=== PATIENT | female | born 1985 | race Caucasian/White ===

== ENCOUNTER 2018-07-11 08:47 | Outpatient (CLI) | payer MEDICAID, SELFPAY ==
[2018-07-11 10:00] LABS: TSH (W/Ref FT4) 1.27 uIU/mL (0.358-3.74)
== END 2018-07-11 09:07 ==
PROVIDERS: PCP Nurse Practitioner Family; Visit Provider Nurse Practitioner Family
DX: N92.6 Irregular menstruation, unspecified (principal)
CPT/HCPCS: 36415; 84443

== ENCOUNTER 2018-07-11 10:21 | Outpatient (REF) | payer MEDICAID, SELFPAY ==
[2018-07-12 14:18] LABS: Chlamydia Result Negative; GC Result Negative; Specimen Description CERVIX
== END 2018-07-11 10:41 ==
LOC: LBN 10:21
PROVIDERS: PCP Nurse Practitioner Family; Visit Provider Nurse Practitioner Family
DX: Z11.3 Encounter for screening for infections with a predominantly sexual mode of transmission (principal)
CPT/HCPCS: 87491; 87591

== ENCOUNTER 2018-08-22 01:23 | Outpatient (CLI) | payer MEDICAID, SELFPAY ==
--- NOTE | 2018-08-22 12:11 | DI.US_ITS ---
SYMPTOM/DIAGNOSIS: HEAVY BLEEDING, MENORRHAGIA N92.0 PELVIC ULTRASOUND: 08/22 Pelvic ultrasound was performed transabdominally and transvaginally. Please see the accompanying data sheet for measurements of the pelvic structures. There is a small quantity of free fluid seen in the right adnexal region. The ovaries have a normal follicular appearance. Uterus is unremarkable in appearance with a 3 mm thick homogeneous endometrial stripe. CONCLUSION: Unremarkable pelvic ultrasound.
== END 2018-08-22 01:43 ==
PROVIDERS: PCP Nurse Practitioner Family; Visit Provider Nurse Practitioner Family
DX: N92.0 Excessive and frequent menstruation with regular cycle (principal)
CPT/HCPCS: 76830; 76856

== ENCOUNTER 2018-11-02 14:01 | Emergency (ER) | payer MEDICAID, SELFPAY ==
[2018-11-02 14:14] VITALS: BP 150/92; PULSE 110; RESP 18; TEMP 36.7; O2SAT 95
--- NOTE | 2018-11-02 14:48 | DI.CT_ITS ---
SYMPTOM/DIAGNOSIS: LUQ PAIN CT ABDOMEN AND PELVIS: CT scan of the abdomen and pelvis was performed following the uneventful administration of intravenous contrast material. Comparison is 10/29/18 Portions of the dome of the liver were not included on this examination. The visualized lung bases are clear. The visualized portions of the liver are unremarkable. The gallbladder is negative. The portal and superior mesenteric veins are patent. There is no biliary ductal dilatation. The pancreas, spleen and adrenal glands are unremarkable. The kidneys show normal and symmetric enhancement. No solid renal mass or obstruction is identified. The urinary bladder is intact. The reproductive organs are unremarkable. There is diverticulosis seen in the sigmoid colon and descending colon but no evidence of acute diverticulitis. The remainder of the bowel is unremarkable. There is a normal appendix present. The abdominal aorta is of normal caliber. No significant abdominal or pelvic adenopathy, ascites or pneumoperitoneum seen. The bones are intact. IMPRESSION: No evidence of an acute abdomen.
[2018-11-02 15:44] LABS: Bilirubin Negative (Negative); Blood Negative (Negative); Clarity Sl Cloudy; Glucose Negative (Negative); Ketones Negative (Negative); Leukocyte Esterase Negative (Negative); Nitrite Negative (Negative); Specific Gravity 1.025 (1.005-1.025); Urobilinogen 0.2 EU/dL (Up TO 0.2)
[2018-11-02 15:55] LABS: Abs Immature Grans 0.04 k/cumm (0.0-0.09); Absolute Basophil Count 0.03 k/cumm (0.0-0.2); Absolute Eosinophil Count 0.18 k/cumm (0.0-0.7); Absolute Lymphocyte Count 4.17 k/cumm (1.2-3.4); Absolute Monocyte Count 1.31 k/cumm (0.11-0.7); Absolute Neutrophil Count 9.64 k/cumm (1.2-6.7); Basophils % 0.2; Eosinophils % 1.2; HCT 39.4 % (36.0-46.0); HGB 12.9 g/dL (12.0-15.5); Immature Grans % 0.3; Lymphocytes % 27.1; Mean Corp. HGB Concentration 32.7 g/dL (32.0-36.0); Mean Corpuscular Hemoglobin 27.9 pg (27.0-33.0); Mean Corpuscular Volume 85.3 fL (80-95); Mean Platelet Volume 10.8 fL (8.0-11.0); Monocytes % 8.5; Neutrophils % 62.7; Platelet Count 353 x1000/uL (130-400); RBC 4.62 m/cumm (4.00-5.20); RBC Distribution Width 12.8 % (11.7-14.6); White Blood Cell Count 15.38 k/cumm (4.4-10.8)
[2018-11-02] MEDS: Normal Saline 1,000 ML 1000 ML IV (15:58)
[2018-11-02] MEDS: Lidocaine 5% Patch 1 PATCH TP (15:58)
--- NOTE | 2018-11-02 16:02 | ED.GENADUL_ITS ---
Discharge Plan Disposition Patient Disposition: HOME Condition: Stable Discharge Details Chief Complaint: Abd Prob Clinical Impression: Abdominal pain Primary Care Provider: Karen Valenzuela ED Provider: Adrian Vazquez Home Meds and New Rx's Prescriptions: New acyclovir 800 mg tablet 800 mg PO Q4H 7 Days Qty: 42 RF: 0 lidocaine 5 % adhesive patch,medicated 1 patch TP DAILY PRN (Reason: pain) Qty: 15 RF: 0 No Action norgestimate-ethinyl estradiol [Sprintec (28)] 0.25-35 mg-mcg tablet 1 tab PO DAILY Qty: 84 RF: 0 Hold Instructions: None medroxyprogesterone 5 mg tablet 5 mg PO DAILY Qty: 30 RF: 0 norethindrone-e.estradiol-iron 1.5 mg-30 mcg (21)/75 mg (7) tablet 1 tab PO DAILY Qty: 84 RF: 4 epinephrine 0.3 MG/SYR auto-injector 0.3 mg IJ PRN PRN (Reason: Anaphylaxis) Qty: 1 RF: 0 ProAir HFA 200 PUFF HFA aerosol inhaler 2 puff Inhalation PRN PRNRF: 0 Discharge Instructions Instructions: Abdominal Pain (ED) Additional Instructions: Your lab work and cat scan did not reveal a cause for your pain. Given the localized area of your pain this could be early shingles. If a rash develops fill the acyclovir You can take 1000mg tylenol and 600mg ibuprofen every 6 hours for pain as needed if you feel you are having significantly more pain or new symptoms such as chest pain or difficulty breathing return to the emergency department Discharge Data Discharge Date/Time-TO BE ENTERED AT DEPARTURE: 11/02/18 17:37 Medical Decision Making <Santos Carrera NP - Last Filed: 11/06/18 10:07> LUQ abd pain started last night persistant. tenderness is somewhat superficial but no trauma is noted. labs and CT ordered along with lidocaine patch. pt denies pain medication at this time. pending results pt signed out to Dr. Vazquez. HPI <Santos Carrera NP - Last Filed: 11/06/18 10:07> General Mode of arrival: ambulatory . Date/Time Provider Initiated Documentation: 11/02/18 14:09 . Limitations to Documentation: no limitations . Information obtained by: patient and RN notes reviewed . History of Present Illness 33 year old F presents to the emergency department with the chief complaint of LUQ abd pain, described as moderate, with intensity rated at 7. Quality is described as aching and sharp, and is localized to the abdomen. Patient started experiencing this day(s) (2) and it has been constant. No relieving factors improve symptom(s), No exacerbating factors reported . Patient did receive the following treatments prior to arrival, none Related Data Home Medications Medication Instructions Recorded Confirmed ProAir HFA 2 puff INHALATION PRN PRN 06/15/17 11/02/18 epinephrine 0.3 mg IJ PRN PRN #1 kit 02/10/18 11/02/18 norgestimate 0.25 mg-ethinyl 1 tab PO DAILY #84 tab 07/11/18 07/11/18 estradiol 35 mcg tablet medroxyprogesterone 5 mg tablet 5 mg PO DAILY #30 tab 08/12/18 norethindrone 1.5 mg-ethinyl 1 tab PO DAILY #84 tab 08/21/18 estradiol 30 mcg(21)/iron 75 mg(7) tablet acyclovir 800 mg PO Q4H 7 Days #42 tab 11/02/18 lidocaine 1 patch TP DAILY PRN #15 each 11/02/18 Previous Rx's Medication Instructions Recorded epinephrine 0.3 mg IJ PRN PRN #1 kit 02/10/18 norgestimate 0.25 mg-ethinyl 1 tab PO DAILY #84 tab 07/11/18 estradiol 35 mcg tablet medroxyprogesterone 5 mg tablet 5 mg PO DAILY #30 tab 08/12/18 norethindrone 1.5 mg-ethinyl 1 tab PO DAILY #84 tab 08/21/18 estradiol 30 mcg(21)/iron 75 mg(7) tablet acyclovir 800 mg PO Q4H 7 Days #42 tab 11/02/18 lidocaine 1 patch TP DAILY PRN #15 each 11/02/18 Allergies Allergy/AdvReac Type Severity Reaction Status Date / Time No Known Allergies Allergy Verified 07/11/18 08:07 General Stated Complaint: Abd Prob KATIE: 3 Review of Systems <Santos Carrera NP - Last Filed: 11/06/18 10:07> Constitutional Denies chills, Denies fever(s) and Denies poor appetite Cardiovascular Denies chest pain and Denies dyspnea Respiratory Denies cough and Denies dyspnea Gastrointestinal Reports as per HPI, Reports abdominal pain, Denies melena, Denies change in bowel habits, Denies constipation, Reports diarrhea, Denies nausea and Denies vomiting Genitourinary Denies hematuria, Denies urinary incontinence, Denies urinary hesitancy and Denies urinary urgency Integumentary/Breasts Denies rash PFSH <Santos Carrera NP - Last Filed: 11/06/18 10:07> Medical History Genital herpes simplex (Chronic) Abnormal Pap smear of cervix (Chronic) Contraception (Resolved) Vertigo (Resolved) Social History Smoking and Tabacco status: Never Female Reproductive History Menstrual control method: none History History 1 Para Hx # Term Pregnancies 1 Multiple births Hx # Pregnancies Ectopic pregnancies AB induced Hx Number of Living Children AB spontaneous Exam <Santos Carrera NP - Last Filed: 11/06/18 10:07> Const General: cooperative Orientation: alert, awake and oriented x3 Resp Effort & Inspection: normal respiratory effort and able to speak in complete sentences Auscultation: clear to auscultation bilaterally Cardio Rate: regular rate Rhythm: regular rhythm Heart Sounds: S1 normal and S2 normal GI Palpation: soft, no hepatosplenomegaly, not firm, no guarding, no masses, no pulsatile masses, not rigid, no splenomegaly and tender in the LUQ; not in the epigastrum, not at McBurney's point, not periumbilically, Duque's sign negative, with no rebound tenderness and Rovsing's sign negative Auscultation: normal bowel sounds Back/Spine/Pelvis Back: no CVA tenderness Neuro General: alert, awake, oriented x3, gait normal and moves all extremities Course <Santos Carrera NP - Last Filed: 11/06/18 10:07> Vital Signs Temperature 36.7 C 11/02/18 14:14 Pulse 110 H 11/02/18 14:14 Respiratory Rate 18 11/02/18 14:14 Blood Pressure 150/92 H 11/02/18 14:14 Pulse Oximetry 95 02/09/19 14:14 Temperature 36.7 C 11/02/18 14:14 Temperature Source Temporal Artery Scan 11/02/18 14:14 Pulse 110 H 11/02/18 14:14 Respiratory Rate 18 11/02/18 14:14 Respiratory Effort Non-Labored 11/02/18 14:19 Blood Pressure 150/92 H 11/02/18 14:14 Blood Pressure Position Sitting 11/02/18 14:14 Pulse Oximetry 95 11/02/18 14:14 Oxygen Delivery Method Room Air 11/02/18 14:14 Oxygen Flow Rate 0 11/02/18 14:14 Pain Level 7 11/02/18 14:14 Lab/Test Results Lab/Test Results: Laboratory Tests Range/Units 11/02/18 11/02/18 15:40 15:50 WBC (4.4-10.8) k/cumm 15.38 H RBC (4.00-5.20) m/cumm 4.62 Hgb (12.0-15.5) g/dL 12.9 Hct (36.0-46.0) % 39.4 MCV (80-95) fL 85.3 MCH (27.0-33.0) pg 27.9 MCHC (32.0-36.0) g/dL 32.7 RDW (11.7-14.6) % 12.8 Plt Count (130-400) x1000/uL 353 MPV (8.0-11.0) fL 10.8 Immature Gran % 0.3 Neutrophils % 62.7 Lymphocytes % 27.1 Monocytes % 8.5 Eosinophils % 1.2 Basophils % 0.2 Absolute Neutrophils (1.2-6.7) k/cumm 9.64 H Absolute Lymphocytes (1.2-3.4) k/cumm 4.17 H Absolute Monocytes (0.11-0.7) k/cumm 1.31 H Absolute Eosinophils (0.0-0.7) k/cumm 0.18 Absolute Basophils (0.0-0.2) k/cumm 0.03 Urine Color (Yellow) Yellow Urine Clarity Sl cloudy Urine pH (5-8) 6.0 Ur Specific [place] (1.005-1.025) 1.025 Urine Protein (Negative) mg/dL Negative Urine Ketones (Negative) mg/dL Negative Urine Blood (Negative) Negative Urine Nitrite (Negative) Negative Urine Bilirubin (Negative) Negative Urine Urobilinogen (Up TO 0.2) EU/dL 0.2 Ur Leukocyte Esterase (Negative) Negative Urine Glucose (Negative) mg/dL Negative POC- Test(urine) Negative Sign Out <Santos Carrera NP - Last Filed: 11/06/18 10:07> Sign Out Data: Sign Out Comment: Pending result pt signed out to Dr. Vazquez. Last updated by Santos Carrera NP at 11/02/18 16:26 Post-Handoff Eval: pt's CT shows no acute findings, she remains stable. She has pain in the left abodmen in the left t9 distribution and has soft abdomen without rash or vesicle and no guarding or rebound. I feel this could be early onset shingles without the rash developed yet. Could also be msuculoskeletal. Do not feel additional lab testing or imaging indicated. I will prescribe the antiviral and advised only to fill it if rash develops. She will f/u with pcp and return precautions given
[2018-11-02 16:07] LABS: ALT 18 U/L (12-78); AST 14 U/L (15-37); Albumin 3.7 g/dL (3.4-5.0); Alkaline Phosphatase 70 U/L (46-116); Anion Gap 10.7 mmol/L (3-11); BUN 12 mg/dL (7-18); Bilirubin, Total 0.2 mg/dL (0.2-1.0); CO2 25.3 mmol/L (21.0-32.0); CREATININE 0.81 mg/dL (0.55-1.02); Chloride 103 mmol/L (98-107); Glucose 83 mg/dL (70-100); Lipase 208 U/L (73-393); Potassium 3.7 mmol/L (3.5-5.1); Sodium 139 mmol/L (136-145); Total Protein 8.4 g/dL (6.4-8.2)
[2018-11-02 16:15] LABS: Calcium 9.4 mg/dL (8.5-10.1)
[2018-11-02] MEDS: Omnipaque 350 MG/ML 100 ML BTL IJ (17:04)
--- NOTE | 2018-11-02 17:16 | DI.VRAD_ITS ---
EXAM: CT Abdomen and Pelvis With Contrast EXAM DATE/TIME: 11/02/2018 2:50 PM CLINICAL HISTORY: 33 years old, female; Signs and symptoms; Other: Luq pain TECHNIQUE: Axial computed tomography images of the abdomen and pelvis with intravenous contrast. All CT scans at this facility use at least one of these dose optimization techniques: automated exposure control; mA and/or kV adjustment per patient size (includes targeted exams where dose is matched to clinical indication); or iterative reconstruction. Coronal and sagittal reformatted images were created and reviewed. CONTRAST: 100 ml of Omnipaque 350 administered intravenously. COMPARISON: CT ABD PELVIS WITH CONTRAST 10/29/2017 11:28 AM FINDINGS: Lower thorax: No acute findings. ABDOMEN: Liver: Unremarkable. No mass. Gallbladder and bile ducts: Unremarkable. No calcified stones. No ductal dilation. Pancreas: Unremarkable. No ductal dilation. Spleen: Unremarkable. No splenomegaly. Adrenals: Normal. No mass. Kidneys and ureters: Unremarkable. No stones. No hydronephrosis. Stomach and bowel: Colonic diverticulosis without diverticulitis. Unremarkable stomach and small bowel. Appendix: No evidence of appendicitis. PELVIS: Bladder: Unremarkable as visualized. Reproductive: Unremarkable as visualized. ABDOMEN and PELVIS: Intraperitoneal space: Unremarkable. No free air. No significant fluid collection. Bones/joints: No acute fracture. Soft tissues: Unremarkable. Vasculature: Unremarkable. No abdominal aortic aneurysm. Lymph nodes: Mildly prominent ileocolic lymph nodes, nonspecific. IMPRESSION: No acute abnormality. Dictated and Authenticated by: Tim Duncan MD. Ordering:SHREYA Graham MD
[2018-11-02 17:41] VITALS: BP 140/95; PULSE 91; RESP 16; TEMP 36.7; O2SAT 96
== END 2018-11-02 17:37 | disposition home or self-care (01) ==
PROVIDERS: Nurse Practitioner Family; Emergency Provider Emergency Medicine; PCP Nurse Practitioner Family
DX: R10.32 Left lower quadrant pain (principal)
CPT/HCPCS: 36415; 80053; 81025; 83690; 96360; 99285; 74177; 81003; 85025; 99284; J3490

== ENCOUNTER 2019-06-09 07:35 | Emergency (ER) | payer MEDICAID, SELFPAY ==
[2019-06-09 07:43] VITALS: BP 125/77; PULSE 64; RESP 16; TEMP 36; O2SAT 98
--- NOTE | 2019-06-09 07:53 | ED.GENADUL_ITS ---
Discharge Plan Disposition Patient Disposition: HOME Condition: Stable Discharge Details Chief Complaint: Sorethroat Clinical Impression: Sore throat Primary Care Provider: Kimo Mckenzie ED Provider: Shey Cummins Home Meds and New Rx's Prescriptions: Continued norgestimate-ethinyl estradiol [Sprintec (28)] 0.25-35 mg-mcg tablet 1 tab PO DAILY Qty: 84 RF: 0 Hold Instructions: Home Medication placed on hold at Doctor's office medroxyprogesterone 5 mg tablet 5 mg PO DAILY Qty: 30 RF: 0 norethindrone-e.estradiol-iron 1.5 mg-30 mcg (21)/75 mg (7) tablet 1 tab PO DAILY Qty: 84 RF: 4 epinephrine 0.3 MG/SYR auto-injector 0.3 mg IJ PRN PRN (Reason: Anaphylaxis) Qty: 1 RF: 0 lidocaine 5 % adhesive patch,medicated 1 patch TP DAILY PRN (Reason: pain) Qty: 15 RF: 0 albuterol sulfate [ProAir HFA] 200 PUFF HFA aerosol inhaler 2 puff Inhalation PRN PRNRF: 0 Discharge Instructions Instructions: Pharyngitis (ED) Additional Instructions: Please return immediately to the emergency department if you develop any new or worsening symptoms, if your symptoms do not improve as expected, or if you become otherwise concerned. It is extremely important that you call as soon as possible to make an appointment to be seen in follow-up for this visit by your primary care doctor. Referrals: Kimo Mckenzie, [employer] [Primary Care Provider] - Discharge Data Discharge Date/Time-TO BE ENTERED AT DEPARTURE: 06/09/19 08:02 Medical Decision Making Kareen Cornelius is a 33 y/o woman with h/o asthma, s/p tonsillectomy who presented to the emergency department with complaint of sore throat and throat tightness similar to multiple episodes of strep throat Pt has had in the past. On exam Pt is very well and non-toxic appearing, mild erythema of the posterior pharynx, no meningismus. Exam/hx not c/w peritonsillar abscess, retropharyngeal abscess, angioedema/anaphylaxis, meningitis, sepsis, ludwigs angina, impending airway compromise. Suspect viral vs bacterial pharyngitis. Rapid strep negative. Pt taking PO in the ED without issue. I had a lengthy discussion with the Pt re: RTED precautions/red flags, home care, and importance of outpt f/u. Pt verbalized understanding of the plan and was amenable. All questions were answered. Pt was discharged to home with clear plan for outpt f/u. Medical Records Medical records reviewed: Yes I reviewed the patient's medical records. Lab Data Lab results reviewed: Yes I reviewed the patient's lab results. HPI General Mode of arrival: ambulatory . Date/Time Provider Initiated Documentation: 06/09/19 07:53 . Limitations to Documentation: no limitations . Information obtained by: patient, RN notes reviewed and old records reviewed . HPI Narrative: Kareen Cornelius 33 y/o woman with history of asthma, status post tonsillectomy presenting to the emergency department with sore throat. Patient reports that she went to [place] last week, and return home yesterday. Patient reports that yesterday she noticed that she was developing sore throat. Sore throat has persisted into today. Patient reports that she has had strep throat multiple times in the past, and had tonsillectomy to prevent recurrent strep throat. Patient reports that her throat feels sore and tight. Patient reports that these are her typical symptoms when she has strep. She denies having fevers, shortness of breath, cough, rash, vomiting, diarrhea, any other pain. Patient reports that she has been eating and drinking as usual without issue. No drooling. Her voice sounds normal to her. Feels otherwise well. Related Data Home Medications Medication Instructions Recorded Confirmed albuterol sulfate [ProAir HFA] 2 puff INHALATION PRN PRN 06/15/17 06/09/19 epinephrine 0.3 mg IJ PRN PRN #1 kit 02/10/18 06/09/19 norgestimate 0.25 mg-ethinyl 1 tab PO DAILY #84 tab 07/11/18 06/09/19 estradiol 35 mcg tablet medroxyprogesterone 5 mg tablet 5 mg PO DAILY #30 tab 08/12/18 06/09/19 norethindrone 1.5 mg-ethinyl 1 tab PO DAILY #84 tab 08/21/18 estradiol 30 mcg(21)/iron 75 mg(7) tablet lidocaine 1 patch TP DAILY PRN #15 each 11/02/18 06/09/19 Previous Rx's Medication Instructions Recorded epinephrine 0.3 mg IJ PRN PRN #1 kit 02/10/18 norgestimate 0.25 mg-ethinyl 1 tab PO DAILY #84 tab 07/11/18 estradiol 35 mcg tablet medroxyprogesterone 5 mg tablet 5 mg PO DAILY #30 tab 08/12/18 norethindrone 1.5 mg-ethinyl 1 tab PO DAILY #84 tab 08/21/18 estradiol 30 mcg(21)/iron 75 mg(7) tablet lidocaine 1 patch TP DAILY PRN #15 each 11/02/18 Allergies Allergy/AdvReac Type Severity Reaction Status Date / Time No Known Allergies Allergy Verified 06/09/19 07:50 General Stated Complaint: Sorethroat KATIE: 4 Review of Systems Review of Systems Narrative: Constitutional: denies fevers Eyes: denies eye pain ENT: denies facial pain, dental pain, abnormal voice, reports sore throat Cardiovascular: denies chest pain Respiratory: denies SOB, cough GI: denies abdominal pain, vomiting, diarrhea : denies flank pain MSK: denies back pain, neck pain, arthralgias, myalgias Skin: denies rash Neuro: denies headaches, weakness PFSH Medical History Abnormal Pap smear of cervix (Chronic) 2012 LGSIL. 09/11/13 colpo directed bx. 11/06/13 LEEP: CIN2 05/2015 Nl Pap/Neg HPV Contraception (Resolved) Mirena IUD. 2008. Replaced 05/2015 Genital herpes simplex (Chronic) on supressive therapy in the past Vertigo (Resolved) Social History Smoking/Tobacco Use Status: Never Drug use: Never Do you feel safe in your relationship?: Yes Female Reproductive History Menstrual control method: none History History 1 Para Hx # Term Pregnancies 1 Multiple births Hx # Pregnancies Ectopic pregnancies AB induced Hx Number of Living Children AB spontaneous Exam Narrative Exam Narrative: Constitutional: well and [id number], pleasant, conversing normally HENT: head atraumatic/normocephalic/normal inspection, mucous membranes moist, mild erythema of the posterior pharynx, no edema of the oropharynx, no intraoral lesion, no other abnormality of the oropharynx, normal voice Eyes: conjunctiva normal, sclera normal, pupils 3mm b/l Neck: no stridor, full painless ROM, no ant or post LAD, trachea midline Resp: normal work of breathing, LCTAB Cardio: normal rate, normal rhythm, no murmur appreciated Skin: warm, dry, normal color, no rash Neuro: alert, not altered, grossly non-focal, normal tone Psych: normal mood, normal affect, normal behavior Course Vital Signs Vital signs: Vital Signs Temperature 36 C L 06/09/19 07:43 Pulse 64 06/09/19 07:43 Respiratory Rate 16 06/09/19 07:43 Blood Pressure 125/77 06/09/19 07:43 Pulse Oximetry 98 06/09/19 07:43 Temperature 36 C L 06/09/19 07:43 Temperature Source Skin 06/09/19 07:43 Pulse 64 06/09/19 07:43 Respiratory Rate 16 06/09/19 07:43 Respiratory Effort Non-Labored 06/09/19 07:43 Blood Pressure 125/77 06/09/19 07:43 Blood Pressure Position Sitting 06/09/19 07:43 Pulse Oximetry 98 06/09/19 07:43 Oxygen Delivery Method Room Air 06/09/19 07:43 Oxygen Flow Rate 0 06/09/19 07:43 Pain Level 0 06/09/19 07:43
== END 2019-06-09 08:02 | disposition home or self-care (01) ==
PROVIDERS: Emergency Provider Student in an Organized Health Care Education/Training Program; PCP Nurse Practitioner Family
DX: J02.9 Acute pharyngitis, unspecified (principal)
CPT/HCPCS: 87880; 99282; 87081

== ENCOUNTER 2019-06-28 15:48 | Emergency (ER) | payer MEDICAID, SELFPAY ==
[2019-06-28 16:08] VITALS: BP 157/100; PULSE 90; RESP 16; TEMP 36.8; O2SAT 97
[2019-06-28] MEDS: Balanced Salt Solution 15 ML BTL OP (17:29)
[2019-06-28] MEDS: Erythromycin Ophth Oint 3.5 GM TUBE OP (17:29)
[2019-06-28] MEDS: Tetracaine 0.5% 4 ML BTL OP (17:29)
[2019-06-28] MEDS: Fluorescein STRIPS 100/BOX 1 MG OP (17:29)
--- NOTE | 2019-06-28 17:53 | W.ED.GENAD ---
Discharge Plan Disposition Patient Disposition: HOME Condition: Stable Discharge Details Chief Complaint: EyeProblem Clinical Impression: Abrasion of conjunctiva, right Primary Care Provider: Kimo Mckenzie ED Provider: Santos Carrera Home Meds and New Rx's Prescriptions: No Action norgestimate-ethinyl estradiol [Sprintec (28)] 0.25-35 mg-mcg tablet 1 tab PO DAILY Qty: 84 RF: 0 Hold Instructions: Home Medication placed on hold at Doctor's office medroxyprogesterone 5 mg tablet 5 mg PO DAILY Qty: 30 RF: 0 norethindrone-e.estradiol-iron 1.5 mg-30 mcg (21)/75 mg (7) tablet 1 tab PO DAILY Qty: 84 RF: 4 epinephrine 0.3 MG/SYR auto-injector 0.3 mg IJ PRN PRN (Reason: Anaphylaxis) Qty: 1 RF: 0 lidocaine 5 % adhesive patch,medicated 1 patch TP DAILY PRN (Reason: pain) Qty: 15 RF: 0 albuterol sulfate [ProAir HFA] 200 PUFF HFA aerosol inhaler 2 puff Inhalation PRN PRNRF: 0 Discharge Instructions Instructions: Erythromycin (Into the eye), Corneal Abrasion (ED) Additional Instructions: Please use the provided ointment and apply half inch to right eye lid 4 times daily for the next 5 days. Return immediately to the emergency department for any new or significant worsening of symptoms otherwise follow-up with [facility] for reassessment if not improving. Referrals: [facility] [Outside] - 3 days Discharge Data Discharge Date/Time-TO BE ENTERED AT DEPARTURE: 06/28/19 18:03 Medical Decision Making Patient presenting to the emergency department for chief complaint of right eye pain. Patient reports that she was mowing yesterday and got some debris in her eye. She was able to remove one large piece but today has felt like there is a remaining foreign body. Patient's visual acuity is appropriate with some slight decrease in acuity of right eye but only minimal change. EOMs are intact, vision intact, fluorescein stain was utilized and conjunctival abrasion was seen on the medial aspect of the eye and approximately the 3 o'clock position. No corneal involvement and otherwise exam is unremarkable. No foreign body was visualized. Patient was placed upon erythromycin ointment for abrasion and recommended to utilize ibuprofen for pain control. Patient recommended to follow-up with [facility]. After discussion of diagnosis and plan of care patient has no further needs, questions, or concerns and states clear understanding to return to the emergency department for any worsening symptoms. HPI General Mode of arrival: ambulatory. Date/Time Provider Initiated Documentation: 06/28/19 16:08. Limitations to Documentation: no limitations. Information obtained by: patient and RN notes reviewed. History of Present Illness 33 year old F presents to the emergency department with the chief complaint of Right eye pain, described as moderate, with intensity rated at 8. Quality is described as sharp, Patient started experiencing this day(s) (1) and it has been constant. Related Data Home Medications Medication Instructions Recorded Confirmed albuterol sulfate [ProAir HFA] 2 puff INHALATION PRN PRN 06/15/17 06/28/19 epinephrine 0.3 mg IJ PRN PRN #1 kit 02/10/18 06/28/19 norgestimate 0.25 mg-ethinyl 1 tab PO DAILY #84 tab 07/11/18 06/28/19 estradiol 35 mcg tablet medroxyprogesterone 5 mg tablet 5 mg PO DAILY #30 tab 08/12/18 06/28/19 norethindrone 1.5 mg-ethinyl 1 tab PO DAILY #84 tab 08/21/18 06/28/19 estradiol 30 mcg(21)/iron 75 mg(7) tablet lidocaine 1 patch TP DAILY PRN #15 each 11/02/18 06/28/19 Previous Rx's Medication Instructions Recorded epinephrine 0.3 mg IJ PRN PRN #1 kit 02/10/18 norgestimate 0.25 mg-ethinyl 1 tab PO DAILY #84 tab 07/11/18 estradiol 35 mcg tablet medroxyprogesterone 5 mg tablet 5 mg PO DAILY #30 tab 08/12/18 norethindrone 1.5 mg-ethinyl 1 tab PO DAILY #84 tab 08/21/18 estradiol 30 mcg(21)/iron 75 mg(7) tablet lidocaine 1 patch TP DAILY PRN #15 each 11/02/18 Allergies Allergy/AdvReac Type Severity Reaction Status Date / Time No Known Allergies Allergy Verified 06/09/19 07:50 General Stated Complaint: EyeProblem KATIE: 4 Review of Systems Constitutional Constitutional: Denies fever(s) and Denies headache(s) Eyes Eyes: Reports as per HPI, Reports blurry vision, Denies change in vision, Reports irritation and Reports eye pain ENT Ears, Nose, Mouth, and Throat: Denies headache(s) and Denies nasal discharge Neurologic Neurologic: Denies headache(s) PFSH Medical History Abnormal Pap smear of cervix (Chronic) 2012 LGSIL. 09/11/13 colpo directed bx. 11/06/13 LEEP: CIN2 05/2015 Nl Pap/Neg HPV Contraception (Resolved) Mirena IUD. 2009. Replaced 05/2015 Genital herpes simplex (Chronic) on supressive therapy in the past Vertigo (Resolved) Social History Smoking/Tobacco Use Status: Never Alcohol Intake: never Drug use: Never Substance use type: does not use Do you feel safe at home: Yes Do you feel safe in your relationship?: Yes Female Reproductive History Menstrual control method: none History History 1 Para Hx # Term Pregnancies 1 Multiple births Hx # Pregnancies Ectopic pregnancies AB induced Hx Number of Living Children AB spontaneous Exam HENMT Head: normal to inspection and atraumatic Eyes Visual Fagan: normal visual fagan by confrontation Alignment and Position: alignment normal and position normal Periorbital: periorbital findings normal Eyelids: eyelids normal Conjunctivae: conjunctival abnormality right conjunctival injection diffuse and other (Linear abrasion seen with dye and slit lamp) Sclera: sclerae normal Cornea: corneas normal and fluorescein used Pupils: PERRL, normal by confrontation and accommodation normal Resp Effort & Inspection: normal respiratory effort and able to speak in complete sentences Neuro General: alert, awake, oriented x3, gait normal and moves all extremities Course Vital Signs Vital signs: Vital Signs Temperature 36.8 C 06/28/19 16:08 Pulse 90 06/28/19 16:08 Respiratory Rate 16 06/28/19 16:08 Blood Pressure 157/100 H 06/28/19 16:08 Pulse Oximetry 97 06/28/19 16:08 Temperature 36.8 C 06/28/19 16:08 Temperature Source Skin 06/28/19 16:08 Pulse 90 06/28/19 16:08 Respiratory Rate 16 06/28/19 16:08 Respiratory Effort Non-Labored 06/28/19 16:10 Blood Pressure 157/100 H 06/28/19 16:08 Pulse Oximetry 97 06/28/19 16:08 Pain Level 10 06/28/19 16:08
--- NOTE | 2019-06-28 18:03 | NUR.NOTE ---
Nursing Note: pt alert/oriented/ambulatory. discharged to home. instructions reviewed. understanding verbalized
== END 2019-06-28 18:03 | disposition home or self-care (01) ==
PROVIDERS: Emergency Provider Nurse Practitioner Family; PCP Nurse Practitioner Family
DX: S05.01XA Injury of conjunctiva and corneal abrasion without foreign body, right eye, initial encounter (principal); X58.XXXA Exposure to other specified factors, initial encounter; Y93.H2 Activity, gardening and landscaping
CPT/HCPCS: 99283

== ENCOUNTER 2019-07-07 11:38 | Outpatient (CLI) | payer MEDICAID, SELFPAY ==
--- NOTE | 2019-07-07 11:24 | DI.RAD_ITS ---
EXAM: XR FOREARM RT INDICATION: mass on right forearm. COMPARISON: No exams were available for comparison TECHNIQUE: 2D digital imaging was performed. FINDINGS: Two views were obtained. No bony or soft tissue abnormality seen. If there is a clinical suspicion of a mass additional evaluation with MRI would be recommended. IMPRESSION:
== END 2019-07-07 11:58 ==
PROVIDERS: PCP Nurse Practitioner Family; Visit Provider Physician Assistant
DX: R22.31 Localized swelling, mass and lump, right upper limb (principal)
CPT/HCPCS: 73090

== ENCOUNTER 2019-11-18 13:57 | Inpatient (IN) | payer MEDICAID, SELFPAY ==
[2019-11-18] VITALS (115 sets, daily range): BP systolic 103–175; BP diastolic 58–122; PULSE 59–133; RESP 9–31; TEMP 36.3–37.4; O2SAT 92–100
[2019-11-18] MEDS: Normal Saline 1,000 ML 1000 ML IV (14:09)
--- NOTE | 2019-11-18 14:11 | W.ED.GENAD ---
Discharge Plan Disposition Patient Disposition: [facility] INPATIENT Condition: Improving Discharge Details Chief Complaint: OD/Poison Clinical Impression: Intentional overdose of drug in tablet form Primary Care Provider: Kimo Mckenzie ED Provider: Eyal Franklin Home Meds and New Rx's Prescriptions: No Action norethindrone-e.estradiol-iron 1.5 mg-30 mcg (21)/75 mg (7) tablet 1 tab PO DAILY Qty: 84 RF: 4 epinephrine 0.3 MG/SYR auto-injector 0.3 mg IJ PRN PRN (Reason: Anaphylaxis) Qty: 1 RF: 0 albuterol sulfate [ProAir HFA] 200 PUFF HFA aerosol inhaler 2 puff Inhalation PRN PRNRF: 0 prazosin [Minipress] 1 mg Capsule 1 mg PO HS RF: 0 topiramate [Topamax] 25 mg Tablet 50 mg PO BID RF: 0 Medical Decision Making This is a 34-year-old female with a past medical history of bipolar disorder, previous suicide attempt by medication overdose, most recent admission was 4 years ago for this, she presents today for overdose. She is prescribed 25 mg Topamax, she took (after pill count) 200x 25 mg tablets 25 minutes prior to arrival. She states that she did this is a rash decision in an attempt to hurt herself. Currently she does not wish to harm herself or end her life and she regrets her decision. She has had similar attempts to this in the past. Currently she arrives by EMS, mildly tachycardic vital signs otherwise stable. She denies any chest pain shortness of breath abdominal pain nausea vomiting vision changes weakness numbness or tingling. She has no other complaints at this time. She denies any other IV or illicit drug use or any other medications that she took. She denies any acetaminophen or salicylate use. She denies any alcohol use. She states that she does want help at this time. She has a notably normal physical exam, no hyper or hyporeflexia. No neurologic deficits. EKG is unremarkable with a normal QRS. No QT prolongation. We did contact poison control, they do not recommend activated charcoal or GI decontamination at this time. I do recommend continued supportive evaluation. Of note I also do discuss potential for metabolic acidosis and hyperchloremia. We will utilize LR instead of normal saline at this time. We will continue to monitor closely, have mental health assess, create a care plan, and continue close observation with one-to-one observation and medical observation. 5:43 PM The remainder the patient's laboratory work-up has returned and is relatively unremarkable. Heart rate has notably normalized. Patient is feeling well but is definitely sleepy. She shows no signs obtundation, or airway compromise whatsoever. She is notably stable currently. Salicylates are normal, sodium and chloride are normal, potassium slightly low at 3.3 which will be corrected. Magnesium levels will be sent. is negative, TSH normal, UDS negative for any evidence of other associated contamination. Because of the amount of medication that was taken I do feel that admission and observation is definitely indicated, and poison control was again updated and agrees with this. Patient will be admitted to the ICU secondary to bed availability. Discussed the case with Dr. burroughs, he agrees with the assessment and plan. I will place admission orders. I have extensively reviewed the treatment plan with the patient. I have addressed all patient concerns at this time. I have also discussed the plan with the admitting physician and they agree with the current assessment and plan and have agreed to assume responsibility for the patient. All parties demonstrate verbal understanding and agreement with our assessment and plan at this time. EKG 14: 10 Rate 110, intervals normal, sinus tachycardia, no significant ST elevations or depressions, no T wave inversions. No significant abnormalities. HPI General Date/Time Provider Initiated Documentation: 11/18/19 14:05. HPI Narrative: This is a 34-year-old female with a past medical history of bipolar disorder, previous suicide attempt by medication overdose, most recent admission was 4 years ago for this, she presents today for overdose. She is prescribed 25 mg Topamax, she took (after pill count) 200x 25 mg tablets 25 minutes prior to arrival. She states that she did this is a rash decision in an attempt to hurt herself. Currently she does not wish to harm herself or end her life and she regrets her decision. She has had similar attempts to this in the past. Currently she arrives by EMS, mildly tachycardic vital signs otherwise stable. She denies any chest pain shortness of breath abdominal pain nausea vomiting vision changes weakness numbness or tingling. She has no other complaints at this time. She denies any other IV or illicit drug use or any other medications that she took. She denies any acetaminophen or salicylate use. She denies any alcohol use. She states that she does want help at this time. Related Data Home Medications Medication Instructions Recorded Confirmed albuterol sulfate [ProAir HFA] 2 puff INHALATION PRN PRN 06/15/17 11/18/19 epinephrine 0.3 mg IJ PRN PRN #1 kit 02/10/18 11/18/19 norethindrone 1.5 mg-ethinyl 1 tab PO DAILY #84 tab 08/21/18 11/18/19 estradiol 30 mcg(21)/iron 75 mg(7) tablet prazosin [Minipress] 1 mg PO HS 11/18/19 11/18/19 topiramate [Topamax] 50 mg PO BID 11/18/19 11/18/19 Previous Rx's Medication Instructions Recorded epinephrine 0.3 mg IJ PRN PRN #1 kit 02/10/18 norethindrone 1.5 mg-ethinyl 1 tab PO DAILY #84 tab 08/21/18 estradiol 30 mcg(21)/iron 75 mg(7) tablet Allergies Allergy/AdvReac Type Severity Reaction Status Date / Time No Known Allergies Allergy Verified 07/07/19 10:57 General Stated Complaint: OD/Poison KATIE: 2 Review of Systems All systems reviewed & are unremarkable except as noted in HPI and below PFSH Medical History (Updated 11/18/19 @ 17:47 by Eyal Franklin DO) Abnormal Pap smear of cervix (Chronic) 2012 LGSIL. 09/11/13 colpo directed bx. 11/06/13 LEEP: CIN2 05/2015 Nl Pap/Neg HPV Anxiety (Chronic) Bipolar 1 disorder (Acute) Contraception (Resolved) Mirena IUD. 2008. Replaced 05/2015 Depression (Chronic) Genital herpes simplex (Chronic) on supressive therapy in the past Mass of right forearm (Acute) Vertigo (Resolved) Social History Smoking/Tobacco Use Status: Never Alcohol Intake: never Drug use: Never Substance use type: does not use Current gender identity: female Do you feel safe at home: Yes Do you feel safe in your relationship?: Yes Female Reproductive History Menstrual control method: none History History 1 Para Hx # Term Pregnancies 1 Multiple births Hx # Pregnancies Ectopic pregnancies AB induced Hx Number of Living Children AB spontaneous Exam Narrative Exam Narrative: 1.Const: Well-nourished, Well-developed, appearing stated age 2.Eyes: PERRL, no conjunctival injection, and symmetrical lids. 3.ENT: Atraumatic external nose and ears. Moist MM. Neck: Symmetric, trachea midline, No thyromegaly. 4.CVS: +S1/S2, No murmurs or gallops. Peripheral pulses 2+ and equal in all extremities. Brisk capillary refill in all extremities. 5.RESP: Unlabored respiratory effort. Clear to auscultation bilaterally. No wheezes rales or rhonchi 6.GI: Soft, Nontender/Nondistended, No hepatosplenomegaly. No guarding or rebound. 7.MSK: Normocephalic/Atraumatic, Extremities w/o deformity or ttp No cyanosis or clubbing, Normal movement of all extremities 8.Skin: Warm, Dry. No rashes or lesions. 9.Neuro: radiation control specialist II-XII grossly intact. Sensation grossly intact, no focal neurologic deficits. All 6 cardinal planes of vision are fully intact. No evidence of rotatory or vertical nystagmus. The patient demonstrated a normal [id number], good dexterity. There was no evidence of dysdiadochokinesia. Patient was able to ambulate without difficulty. There was no wide-based gait. Sensation was intact bilaterally as well as muscle strength bilaterally for all extremities. Patient was able to verbalize butter cup with no slurring, or miss pronunciation. No hyperreflexia. 10.Psych: (AAO) x3. Appropriate mood and affect Course Vital Signs Vital signs: Vital Signs Temperature 37.4 C 11/18/19 13:57 Pulse 127 H 11/18/19 13:57 Respiratory Rate 27 H 11/18/19 13:57 Blood Pressure 168/102 H 11/18/19 13:57 Pulse Oximetry 98 11/18/19 13:57 Temperature 37.4 C 11/18/19 13:57 Temperature Source Temporal Artery Scan 11/18/19 13:57 Pulse 127 H 11/18/19 13:57 Respiratory Rate 20 11/18/19 14:04 Respiratory Effort Non-Labored 11/18/19 14:04 Respiratory Depth Normal 11/18/19 14:04 Respiratory Pattern Normal 11/18/19 14:04 Blood Pressure 168/102 H 11/18/19 13:57 Blood Pressure Position Sitting 11/18/19 13:57 Pulse Oximetry 98 11/18/19 13:57 Oxygen Delivery Method Room Air 11/18/19 13:57 Oxygen Flow Rate 0 11/18/19 13:57 Pain Level 0 11/18/19 13:57
[2019-11-18] MEDS: Lactated Ringers 1,000 ML 1000 ML IV ×2 (14:17→15:22)
[2019-11-18 14:24] LABS: Abs Immature Grans 0.06 k/cumm (0.0-0.09); Absolute Basophil Count 0.03 k/cumm (0.0-0.2); Absolute Lymphocyte Count 3.34 k/cumm (1.2-3.4); Absolute Neutrophil Count 8.29 k/cumm (1.2-6.7); Basophils % 0.2; Eosinophils % 0.8; HCT 42.3 % (36.0-46.0); HGB 14.2 g/dL (12.0-15.5); Immature Grans % 0.5 %; Lymphocytes % 26.5; Mean Corp. HGB Concentration 33.6 g/dL (32.0-36.0); Mean Corpuscular Hemoglobin 28.6 pg (27.0-33.0); Mean Corpuscular Volume 85.1 fL (80-95); Mean Platelet Volume 11.1 fL (8.0-11.0); Monocytes % 6.3; Neutrophils % 65.7; Platelet Count 382 x1000/uL (130-400); RBC 4.97 m/cumm (4.00-5.20); RBC Distribution Width 13.5 % (11.7-14.6); White Blood Cell Count 12.62 k/cumm (4.4-10.8)
[2019-11-18 14:29] LABS: Lactate 2.5 mmol/L (0.6-1.4)
[2019-11-18 14:30] LABS: BE (Venous) -5.3 mmol/L (-3-3); HCO3 (Venous) 20 mmol/L (22-28); O2 Sat (Venous) 93 % (70-80); TCO2 (Venous) 18 mmol/L (22-29); pCO2 (Venous) 32 mm/Hg (34-47); pO2 (Venous) 62 mm/Hg (28-44)
[2019-11-18 14:42] LABS: ALT 34 U/L (14-59); AST 15 U/L (15-37); Albumin 4.2 g/dL (3.4-5.0); Alkaline Phosphatase 90 U/L (46-116); Anion Gap 14.7 mmol/L (3-11); BUN 12 mg/dL (7-18); Bilirubin, Total 0.3 mg/dL (0.2-1.0); CO2 22.3 mmol/L (21.0-32.0); CREATININE 1.02 mg/dL (0.55-1.02); Calcium 9.2 mg/dL (8.5-10.1); Chloride 106 mmol/L (98-107); Glucose 123 mg/dL (74-106); Potassium 3.3 mmol/L (3.5-5.1); Sodium 143 mmol/L (136-145); Total Protein 8.3 g/dL (6.4-8.2)
[2019-11-18 14:44] LABS: Salicylate < 2.8 mg/dL (2.8-20.0)
[2019-11-18 14:49] LABS: PTT Activated 27.6 sec (21.0-31.4); Prothrombin Time 10.4 sec (9.3-11.0)
[2019-11-18 14:51] LABS: ETHANOL BLOOD < 3.0 mg/dL (<3)
[2019-11-18 14:57] LABS: Acetaminophen < 2 ug/mL (10-30)
[2019-11-18 14:59] LABS: TSH (W/Ref FT4) 1.34 uIU/mL (0.36-3.74)
[2019-11-18 15:03] LABS: HCG Quant, Pregnancy < 1 mIU/mL (1-3)
[2019-11-18 16:12] LABS: Bilirubin Negative (Negative); Blood Negative (Negative); Clarity Cloudy (Clear); Glucose Negative (Negative); Ketones Negative (Negative); Leukocyte Esterase Trace (Negative); Nitrite Negative (Negative); Specific Gravity 1.015 (1.005-1.025); Urobilinogen 0.2 EU/dL (Up TO 0.2); pH 7.5 (5-8)
[2019-11-18 16:22] LABS: Bacteria Many HPF (Negative); C & S Indicated? No/Sq. Contamination; Crystals Negative HPF (Negative); Epithelial Cells Many HPF (Negative); Mucus Negative (Negative); RBC 0-2 HPF (0-2)
[2019-11-18 16:27] LABS: *AMPHETAMINES SCREEN URINE Negative (Negative); *BARBITURATES SCREEN URINE Negative (Negative); *BENZODIAZEPINES SCREEN URINE Negative (Negative); Cannabinoids THC Negative (Negative); Cocaine Screen,Urine Negative (Negative); METHADONE URINE SCREEN Negative (Negative); OPIATES URINE SCREEN Negative (Negative)
[2019-11-18 16:30] LABS: Tricyclic Antidepressants Negative (Negative)
--- NOTE | 2019-11-18 16:46 | PDOC.NKHSC_ITS ---
Date of service: 11/18/19 Time of Service: 16:46
--- NOTE | 2019-11-18 16:46 | NKS.ED.CM ---
Date of service: 11/18/19 Time of Service: 16:46
--- NOTE | 2019-11-18 16:48 | PDOC.MHPN2 ---
Date of service: 11/18/19 Time of Service: 16:48 Mental Health Progress Note Progress Note Progress Note: Presenting Issue: Pt presented to ED via ambulance after swallowing two handfuls of her prescription medication, Topomax. Precipitating Factors Pt advised that her SI was triggered by an argument with her sister, compounded with stress from caring for her mother, with whom she lives, who suffers from COPD and currently has the flu. Pt advised she is in treatment at [facility] for depression, anxiety, and bipolar disorder. She advised that she has family issues, particularly with her older siblings who don't understand her mental illness. Disposition * Behavior: patient stayed still on the bed while we spoke, expressing her regret multiple times, drank water, and was polite and forthcoming with her mental health issues. *Eye Contact: Appropriate eye contact, though patient was intermittently crying *Mood: Regretful, pt advised she just wasn't thinking and didn't want to . *Affect: pt acted appropriately *Appetite: patient did not advise any loss of appetite *Sleep(trouble falling/staying asleep): patient advised she takes medication to help her sleep Plan(please elaborate and include that physician is consulted with plan and/or placement): Dr. Franklin advised me, before I met with pt, that he did not believe she needed placement, but that a safety plan would be appropriate. I obtained a release from pt to speak with Rachel Moss. Isa advised that she would be meeting with pt on 11/24/19 to discuss a plan to administer her meds differently, which may include prescribing less meds at one time and/or requesting pt's mother administer meds at home. Pt was open to this, and this was included in her safety plan. Pt will stay overnight for medical observation, and will be discharged when medically cleared. I will follow up with pt at 1300 on 11/19/19. Clinician's Name , Title, and Signature Abigail Sanford [facility] Make sure that you are photocopying and submitting this to [facility] records Dept. to be scanned into chart.
--- NOTE | 2019-11-18 18:23 | PDOC.CMSAFED ---
- If Service Date Differs Date of service: 11/18/19 Time of Service: 18:24 Care Management Safety Plan Chief Complaint: Kareen is a 34 year old female who comes to the ED via ambulance after reportedly ingesting 200 x 25 mg of Topamax, a medication she is prescribed by Rachel Moss aprn, of [facility]. Kareen has a history of depression, anxiety, and bipolar disorder. Her history is also positive for a suicide attempt via overdose about 4 years ago. She was assessed by Abigail [facility] screener, earlier today, at which time she denied wanting to . Kareen will need to be reassessed by an [facility] screener when she is medically stable. If screener deems patient meets criteria for psychiatric stabilization, CM will facilitate interdepartmental huddle with [facility] screener for safety planning considerations and meet with patient to review [facility] policy and safety plan, establish individual wishes for treatment and maintain patient rights. In the interim; please note safety plan below to guide patient care while awaiting reassessment. SAFETY PLAN: 1. Will remain on suicide precautions and in paper clothes. 2. Will remain in room under direct supervision of one-on-one staff at all times provided by [employer], YAKOV, SALES REPRESENTATIVE [employer] floorperson. 3. May have paper cups, plates, finger foods as well as a cardboard spoon with which to eat meals. 4. Follow [facility] Management of the Admitted Behavioral Health Patient policy. 5. Comfort bath system only. 6. No personal belongings 7. No visitors. 8. No phone privileges at this time. 9. Due to VOLUNTARY status, if patient wishes to leave [facility], the [facility] food preparation worker must be contacted to re-evaluate patient prior to patient exiting the building. If deemed appropriate for inpatient psychiatric care, safety plan will be established with patient, and care team, to adhere to patient goals, identify restrictions based on behavioral status, address nutrition, and determine allowed personal belongings, tools for hygiene and personal care. As well plan will determine level of activity including ambulation, level of supervision, visitors, and determine privileges based on level of acuity, behaviors and level of engagement by patient.
[2019-11-18] MEDS: POTASSIUM CHLORIDE 20 MEQ/100 ML BAG 50 MEQ IVPB (19:09)
--- NOTE | 2019-11-18 20:06 | W.PM.HP.N ---
Date of service: 11/18/19 Time of Service: 20:07 Assessment and Plan Assessment and plan (1) Intentional overdose of drug in tablet form: Status: Acute Assessment and plan: Patient has not had minimal symptoms related to topiramate overdose. There is evidence of other substances on the patient's history or assessment emergency room, including ethyl alcohol, salicylate, acetaminophen, and urine drug screen. We expect to see sedation, the patient will be monitored overnight primarily to assess her respiratory status. Remains not known to cause cardiovascular applications, but will keep her on the monitor just in case we missed another ingestion. Her main is associated with non-anion gap acidosis and occasionally hepatitis in some people. Given initial labs very soon after ingestion, will recheck CMP in the morning along with a lactate that was slightly high. (2) Depression: Status: Chronic Assessment and plan: Patient struggled with chronic depression, anxiety, and PTSD. She has been evaluated by the crisis team, who feels like she is not an ongoing eminent suicide risk and does not meet criteria for acute psychiatric hospitalization. I agree with this assessment. We will discontinue the topiramate, but continue her doxazosin nightly. Patient can follow-up with her psychiatric team upon discharge to discuss alternative medication. Note is made in the outpatient record of learning disability that makes behavioral approaches to her depression more challenging. (3) Hypokalemia: Status: Acute Assessment and plan: She is not tolerating IV potassium very well. I will give her oral potassium chloride and follow-up levels in the morning. (4) DVT prophylaxis: Status: Acute Assessment and plan: Given the patient is young and physically active, I do not think prophylaxis indicated. (5) Discharge planning issues: Status: Acute Assessment and plan: Patient will be observed overnight in the ICU. If no further complications develop, she can likely be discharged tomorrow. She is full code. History of Present Illness History of Present Illness Chief Complaint: Overdose Narrative: 34-year-old female with history of major depression and PTSD who presented to the emergency room this afternoon after taking approximately 200 25mg topiramate tablets. Patient was feeling overwhelmed and suicidal, but quickly regretted taking the overdose and called emergency medical services and presented to the hospital with an hour of taking the overdose. She denies taking any other type medication, or consuming other substances such as alcohol or drugs. She does have a long history of struggling with depression with a history of previous suicide attempt by overdose. After the ingestion, the patient did feel some vertigo for a few minutes, this has resolved. She currently feels sleepy, but denies other symptoms. Patient has been seeing psychiatric nurse practitioner Rachel Moss and therapist Marcia Damon at [facility]. There have been no major recent medication changes. The plan had been to slowly titrate up the topiramate. Review of Systems Narrative: General: No fevers or chills. No recent weight changes. Normal appetite. HEENT: No headaches. No vision changes or irritation. No mouth sores or trouble swallowing. No hearing changes. Brief vertigo per HPI. Respiratory: No cough or wheezing, no shortness of breath Cardiovascular: No chest pain or pressure, no palpitations, no lightheadedness or fainting GI: No nausea or vomiting. Abdominal pain or bloating. No diarrhea or constipation. No blood in stool or melena. : No dysuria or hematuria. No change in urinary flow. History of irregular periods, not heavy. MSK: No joint pains or swelling. Skin: No rashes or other skin lesions. No abnormal bruising. Heme: No swollen lymph nodes or bleeding. Psychiatric: No visual or auditory hallucinations. Neurologic: No focal numbness or weakness. [facility] Medical History (Updated 11/18/19 @ 20:36 by Yoel Peguero) Abnormal Pap smear of cervix (Chronic) 2012 LGSIL. 09/11/13 colpo directed bx. 11/06/13 LEEP: CIN2 05/2015 Nl Pap/Neg HPV Anxiety (Chronic) Bipolar 1 disorder (Acute) Contraception (Resolved) Mirena IUD. 2008. Replaced 05/2015 Depression (Chronic) Genital herpes simplex (Chronic) on supressive therapy in the past Mass of right forearm (Acute) Vertigo (Resolved) Surgical History (Updated 11/18/19 @ 20:18 by Yoel Peguero) History of tonsillectomy (Chronic) Social History (Updated 11/18/19 @ 20:20 by Yoel Peguero) Smoking/Tobacco Use Status: Never Alcohol Intake: never Drug use: Never Substance use type: does not use Current gender identity: female Do you feel safe at home: Yes Do you feel safe in your relationship?: Yes Additional Social history: Lives with her mom Sandrine and her 12-year-old son Heidi. They have 2 cats. She does not work outside the home. Female Reproductive History Menstrual control method: none History History 1 Para Hx # Term Pregnancies 1 Multiple births Hx # Pregnancies Ectopic pregnancies AB induced Hx Number of Living Children AB spontaneous Meds Home Medications and Allergies Home Medications Medication Instructions Recorded Confirmed Type albuterol sulfate [ProAir HFA] 2 puff INHALATION PRN PRN 06/15/17 11/18/19 History epinephrine 0.3 mg IJ PRN PRN #1 kit 02/10/18 11/18/19 Rx norethindrone 1.5 mg-ethinyl 1 tab PO DAILY #84 tab 08/21/18 11/18/19 Rx estradiol 30 mcg(21)/iron 75 mg(7) tablet prazosin [Minipress] 1 mg PO HS 11/18/19 11/18/19 History topiramate [Topamax] 50 mg PO BID 11/18/19 11/18/19 History Allergies Allergy/AdvReac Type Severity Reaction Status Date / Time No Known Allergies Allergy Verified 07/07/19 10:57 Exam Narrative Exam Narrative: General: Alert and oriented x3, sitting in bed in no acute distress. Occasionally tearful. HEENT: Normocephalic, atraumatic. Conjunctive are clear with no icterus. Pupils are 4 to 5 mm in room without direct light, equal and reactive bilaterally. Extraocular motions intact. No nystagmus. No rhinorrhea. Mucous membranes moist with oropharynx benign, no mucosal lesions. Neck is supple no masses or lymphadenopathy. Lungs: Normal respiratory effort, lungs clear to auscultation bilaterally. Cardiovascular: Regular rate and rhythm no murmurs gallops or rubs. Abdominal: Active bowel sounds, soft, nontender nondistended. No masses or organomegaly. Extremities: No cyanosis clubbing or edema. Legs nontender to palpation. No joint redness or swelling. Skin: No rashes or other skin lesions. Neurologic: Cranial nerves II through XII intact. Normal visual field to confrontation. Normal coordination to [id number]. Normal movement in 4 extremities. No tremor. Psychiatric: Mood and affect mildly depressed. Normal thought process, though she does have difficulty recalling some of her medical history. She is able to stay focused and appropriately respond to questions during the interview. Results Labs Result diagrams: 11/18/19 14:00 11/18/19 14:00 Labs: Laboratory Results - last 24 hr 11/18/19 11/18/19 11/18/19 14:00 14:00 14:00 WBC RBC Hgb Hct MCV MCH MCHC RDW Plt Count MPV Immature Gran % Neutrophils % Lymphocytes % Monocytes % Eosinophils % Basophils % Absolute Neutrophils Absolute Lymphocytes Absolute Monocytes Absolute Eosinophils Absolute Basophils PT INR APTT VBG pH VBG pCO2 VBG pO2 VBG HCO3 VBG Total CO2 VBG O2 Saturation VBG Base Excess Sodium 143 Potassium 3.3 L Chloride 106 Carbon Dioxide 22.3 Anion Gap 14.7 H BUN 12 Creatinine 1.02 Estimated GFR/1.73 m2 >= 60.00 Glucose 123 H Lactate Calcium 9.2 Magnesium Total Bilirubin 0.3 AST 15 ALT 34 Alkaline Phosphatase 90 Total Protein 8.3 H Albumin 4.2 TSH 1.34 Beta HCG, Quant < 1 L Urine Color Urine Clarity Urine pH Ur Specific [place] Urine Protein Urine Ketones Urine Blood Urine Nitrite Urine Bilirubin Urine Urobilinogen Ur Leukocyte Esterase Urine RBC Urine WBC Ur Epithelial Cells Urine Crystals Urine Bacteria Urine Mucus Ur Culture Indicated? Urine Glucose Salicylates < 2.8 Urine Opiates Screen Urine Methadone Screen Acetaminophen < 2 Ur Barbiturates Screen Ur Tricyclics Screen Ur Amphetamines Screen U Benzodiazepines Scrn Urine Cocaine Screen Ur THC Screen Ethyl Alcohol < 3.0 11/18/19 11/18/19 11/18/19 14:00 14:00 14:23 WBC 12.62 H RBC 4.97 Hgb 14.2 Hct 42.3 MCV 85.1 MCH 28.6 MCHC 33.6 RDW 13.5 Plt Count 382 MPV 11.1 H Immature Gran % 0.5 Neutrophils % 65.7 Lymphocytes % 26.5 Monocytes % 6.3 Eosinophils % 0.8 Basophils % 0.2 Absolute Neutrophils 8.29 H Absolute Lymphocytes 3.34 Absolute Monocytes 0.80 H Absolute Eosinophils 0.10 Absolute Basophils 0.03 PT 10.4 INR 1.0 APTT 27.6 VBG pH 7.40 VBG pCO2 32 L VBG pO2 62 H VBG HCO3 20 L VBG Total CO2 18 L VBG O2 Saturation 93 H VBG Base Excess -5.3 L Sodium Potassium Chloride Carbon Dioxide Anion Gap BUN Creatinine Estimated GFR/1.73 m2 Glucose Lactate Calcium Magnesium Total Bilirubin AST ALT Alkaline Phosphatase Total Protein Albumin TSH Beta HCG, Quant Urine Color Urine Clarity Urine pH Ur Specific [place] Urine Protein Urine Ketones Urine Blood Urine Nitrite Urine Bilirubin Urine Urobilinogen Ur Leukocyte Esterase Urine RBC Urine WBC Ur Epithelial Cells Urine Crystals Urine Bacteria Urine Mucus Ur Culture Indicated? Urine Glucose Salicylates Urine Opiates Screen Urine Methadone Screen Acetaminophen Ur Barbiturates Screen Ur Tricyclics Screen Ur Amphetamines Screen U Benzodiazepines Scrn Urine Cocaine Screen Ur THC Screen Ethyl Alcohol 11/18/19 11/18/19 11/18/19 14:23 16:00 16:00 WBC RBC Hgb Hct MCV MCH MCHC RDW Plt Count MPV Immature Gran % Neutrophils % Lymphocytes % Monocytes % Eosinophils % Basophils % Absolute Neutrophils Absolute Lymphocytes Absolute Monocytes Absolute Eosinophils Absolute Basophils PT INR APTT VBG pH VBG pCO2 VBG pO2 VBG HCO3 VBG Total CO2 VBG O2 Saturation VBG Base Excess Sodium Potassium Chloride Carbon Dioxide Anion Gap BUN Creatinine Estimated GFR/1.73 m2 Glucose Lactate 2.5 H* Calcium Magnesium Total Bilirubin AST ALT Alkaline Phosphatase Total Protein Albumin TSH Beta HCG, Quant Urine Color Straw Urine Clarity Cloudy Urine pH 7.5 Ur Specific [place] 1.015 Urine Protein Negative Urine Ketones Negative Urine Blood Negative Urine Nitrite Negative Urine Bilirubin Negative Urine Urobilinogen 0.2 Ur Leukocyte Esterase Trace H Urine RBC 0-2 Urine WBC 3-5 Ur Epithelial Cells Many Urine Crystals Negative Urine Bacteria Many Urine Mucus Negative Ur Culture Indicated? No/sq. contamination Urine Glucose Negative Salicylates Urine Opiates Screen Negative Urine Methadone Screen Negative Acetaminophen Ur Barbiturates Screen Negative Ur Tricyclics Screen Negative Ur Amphetamines Screen Negative U Benzodiazepines Scrn Negative Urine Cocaine Screen Negative Ur THC Screen Negative Ethyl Alcohol 11/18/19 17:55 WBC RBC Hgb Hct MCV MCH MCHC RDW Plt Count MPV Immature Gran % Neutrophils % Lymphocytes % Monocytes % Eosinophils % Basophils % Absolute Neutrophils Absolute Lymphocytes Absolute Monocytes Absolute Eosinophils Absolute Basophils PT INR APTT VBG pH VBG pCO2 VBG pO2 VBG HCO3 VBG Total CO2 VBG O2 Saturation VBG Base Excess Sodium Potassium Chloride Carbon Dioxide Anion Gap BUN Creatinine Estimated GFR/1.73 m2 Glucose Lactate Calcium Magnesium 2.0 Total Bilirubin AST ALT Alkaline Phosphatase Total Protein Albumin TSH Beta HCG, Quant Urine Color Urine Clarity Urine pH Ur Specific [place] Urine Protein Urine Ketones Urine Blood Urine Nitrite Urine Bilirubin Urine Urobilinogen Ur Leukocyte Esterase Urine RBC Urine WBC Ur Epithelial Cells Urine Crystals Urine Bacteria Urine Mucus Ur Culture Indicated? Urine Glucose Salicylates Urine Opiates Screen Urine Methadone Screen Acetaminophen Ur Barbiturates Screen Ur Tricyclics Screen Ur Amphetamines Screen U Benzodiazepines Scrn Urine Cocaine Screen Ur THC Screen Ethyl Alcohol Last Vital Signs Temp 36.3 C L 11/18/19 19:37 Pulse 76 11/18/19 19:11 Resp 17 11/18/19 19:37 BP 125/78 11/18/19 19:37 Pulse Ox 97 11/18/19 19:37
--- NOTE | 2019-11-18 21:04 | NUR.NOTE ---
Diane a pharmacist at [facility] called and checked in on the patient. Since the patient is doing well. Diane is going to close the case on her end and states to call them with any further concerns. Diane states it is okay to give the patient her home prazosin tonight. Nursing Note:
[2019-11-18] MEDS: Potassium Chloride 20 MEQ TABCR 40 MEQ PO (21:15)
[2019-11-19] VITALS (98 sets, daily range): BP systolic 114–126; BP diastolic 65–77; PULSE 53–91; RESP 9–24; TEMP 36.3–36.8; O2SAT 92–99
[2019-11-19 06:36] LABS: Lactate 0.8 mmol/L (0.6-1.4)
[2019-11-19 06:55] LABS: ALT 27 U/L (14-59); AST 12 U/L (15-37); Albumin 3.4 g/dL (3.4-5.0); Alkaline Phosphatase 72 U/L (46-116); Anion Gap 12.3 mmol/L (3-11); BUN 12 mg/dL (7-18); Bilirubin, Total 0.3 mg/dL (0.2-1.0); CO2 20.7 mmol/L (21.0-32.0); CREATININE 0.92 mg/dL (0.55-1.02); Calcium 8.6 mg/dL (8.5-10.1); Chloride 110 mmol/L (98-107); Glucose 99 mg/dL (74-106); Potassium 3.7 mmol/L (3.5-5.1); Sodium 143 mmol/L (136-145); Total Protein 6.6 g/dL (6.4-8.2)
--- NOTE | 2019-11-19 08:18 | W.PM.PROGNOT ---
Date of Service Date of service: 11/19/19 Time of Service: 08:18 Assessment and Plan Assessment and plan (1) Intentional overdose of drug in tablet form: Status: Acute (2) Lactic acidosis: Status: Acute Assessment and plan: Resolved. (3) Depression: Status: Chronic Assessment and plan: Patient will need to be reevaluated by mental health before discharge planning. Seems that her depression is not under good control. At present she does not appear to be on any antidepressants but is merely on a mood stabilizer of Topamax. Qualifiers: Active/Remission status: currently active Depression Type: major depressive disorder Major depression episode severity: severe Major depression recurrence: recurrent Psychotic features: without psychotic features Qualified Code(s): F33.2 - Major depressive disorder, recurrent severe without psychotic features (4) Hypokalemia: Status: Acute Assessment and plan: Resolved (5) Discharge planning issues: Status: Acute Assessment and plan: I would like mental health to reevaluate the patient prior to discharge. I feel that she may need inpatient psychiatric treatment for stabilization of her depression and bipolar disorder. Subjective Subjective Interval history since last seen: Patient 34-year-old female with past medical history of bipolar disorder and PTSD who after an argument with her sister took an overdose of her Topamax. Per ER report and per the night hospitalist report patient took 200 tablets of Topamax 25 mg. Patient indicated to me that the bottle had 300 tablets. Per mental health professionals evaluation patient's living situation has been stressful and that the patient lives with her mother for whom she helps care for. Her mother has COPD. Patient has a son whom she cares for. When I asked the patient what her intention was in taking the overdose she everted her eyes and would not answer me. She indicated that she was angry because of some of the things that her sister said to her. She did not want to elaborate as to what the conversation was about. When I asked her if she is intentionally taken overdose of pills in the past she denied the same. I asked her if she been hospitalized for her PTSD in the past and she denied the same. She admits she is regretful that she took the overdose of pills and acknowledges that she could handle the situation differently. When I asked her whether or not her intention was to kill herself she would not answer me. Currently patient is tired probably secondary to the overdose of the Topamax. She remains hemodynamically stable and will continue to be monitored today. We will ask mental health to reevaluate her for consideration of inpatient psychiatric treatment. Exam Narrative Exam Narrative: Tearful young female who initially was lethargic but awakened easily and answer my questions. She seems to be answering questions appropriately although she averts her eyes to looking directly at me. Lungs are clear to auscultation. Heart is regular rate and rhythm without murmur rub or gallop. Abdomen is obese soft and nontender. Hands and arms are without tremors. Objective Objective Clinical Data: Abnormal lab results 11/18/19 11/18/19 11/18/19 Range/Units 14:00 14:00 14:23 WBC 12.62 H (4.4-10.8) k/cumm MPV 11.1 H (8.0-11.0) fL Absolute Neutrophils 8.29 H (1.2-6.7) k/cumm Absolute Monocytes 0.80 H (0.11-0.7) k/cumm VBG pCO2 32 L (34-47) mm/Hg VBG pO2 62 H (28-44) mm/Hg VBG HCO3 20 L (22-28) mmol/L VBG Total CO2 18 L (22-29) mmol/L VBG O2 Saturation 93 H (70-80) % VBG Base Excess -5.3 L (-3-3) mmol/L Potassium 3.3 L (3.5-5.1) mmol/L Chloride (98-107) mmol/L Carbon Dioxide (21.0-32.0) mmol/L Anion Gap 14.7 H (3-11) mmol/L Glucose 123 H (74-106) mg/dL Lactate (0.6-1.4) mmol/L AST (15-37) U/L Total Protein 8.3 H (6.4-8.2) g/dL Beta HCG, Quant < 1 L (1-3) mIU/mL Ur Leukocyte Esterase (Negative) 11/18/19 11/18/19 11/19/19 Range/Units 14:23 16:00 06:30 WBC (4.4-10.8) k/cumm MPV (8.0-11.0) fL Absolute Neutrophils (1.2-6.7) k/cumm Absolute Monocytes (0.11-0.7) k/cumm VBG pCO2 (34-47) mm/Hg VBG pO2 (28-44) mm/Hg VBG HCO3 (22-28) mmol/L VBG Total CO2 (22-29) mmol/L VBG O2 Saturation (70-80) % VBG Base Excess (-3-3) mmol/L Potassium (3.5-5.1) mmol/L Chloride 110 H (98-107) mmol/L Carbon Dioxide 20.7 L (21.0-32.0) mmol/L Anion Gap 12.3 H (3-11) mmol/L Glucose (74-106) mg/dL Lactate 2.5 H* (0.6-1.4) mmol/L AST 12 L (15-37) U/L Total Protein (6.4-8.2) g/dL Beta HCG, Quant (1-3) mIU/mL Ur Leukocyte Esterase Trace H (Negative) Vital Signs Temperature 36.3 C L 11/19/19 03:44 Temperature Source Temporal Artery Scan 11/19/19 03:44 Pulse 77 11/18/19 19:46 Pulse 96 H 11/18/19 21:20 Respiratory Rate 18 11/19/19 03:44 Respiratory Effort Non-Labored 11/19/19 03:44 Respiratory Depth Normal 11/19/19 03:44 Respiratory Pattern Normal 11/19/19 03:44 Blood Pressure 121/73 11/19/19 03:44 Blood Pressure Mean 89 11/19/19 03:44 Blood Pressure Position Sitting 11/19/19 03:44 Pulse Oximetry 98 11/19/19 08:16 Oxygen Delivery Method Room Air 11/19/19 08:16 Oxygen Flow Rate 0 11/19/19 08:16 Pain Level 0 11/19/19 03:44 Intake & Output 11/18/19 11/18/19 11/19/19 11:59 23:59 11:59 Intake Total 2234 Output Total 600 / 600 Balance 2234 -600 / -600 Weight 114.4 kg Intake: IV 2034 Oral 200 / 200 Output: Urine 600 / 600 Other: Urine Color Yellow Urine Appearance Clear Urine Odor Normal Comment Pt has a merena IUD Pt has a merena IUD Laboratory Results WBC 12.62 k/cumm (4.4-10.8) H 11/18/19 14:00 RBC 4.97 m/cumm (4.00-5.20) 11/18/19 14:00 Hgb 14.2 g/dL (12.0-15.5) 11/18/19 14:00 Hct 42.3 % (36.0-46.0) 11/18/19 14:00 MCV 85.1 fL (80-95) 11/18/19 14:00 MCH 28.6 pg (27.0-33.0) 11/18/19 14:00 MCHC 33.6 g/dL (32.0-36.0) 11/18/19 14:00 RDW 13.5 % (11.7-14.6) 11/18/19 14:00 Plt Count 382 x1000/uL (130-400) 11/18/19 14:00 MPV 11.1 fL (8.0-11.0) H 11/18/19 14:00 Immature Gran % 0.5 % 11/18/19 14:00 Neutrophils % 65.7 11/18/19 14:00 Lymphocytes % 26.5 11/18/19 14:00 Monocytes % 6.3 11/18/19 14:00 Eosinophils % 0.8 11/18/19 14:00 Basophils % 0.2 11/18/19 14:00 Absolute Neutrophils 8.29 k/cumm (1.2-6.7) H 11/18/19 14:00 Absolute Lymphocytes 3.34 k/cumm (1.2-3.4) 11/18/19 14:00 Absolute Monocytes 0.80 k/cumm (0.11-0.7) H 11/18/19 14:00 Absolute Eosinophils 0.10 k/cumm (0.0-0.7) 11/18/19 14:00 Absolute Basophils 0.03 k/cumm (0.0-0.2) 11/18/19 14:00 PT 10.4 sec (9.3-11.0) 11/18/19 14:00 INR 1.0 (0.9-1.1) 11/18/19 14:00 APTT 27.6 sec (21.0-31.4) 11/18/19 14:00 VBG pH 7.40 (7.35-7.45) 11/18/19 14:23 VBG pCO2 32 mm/Hg (34-47) L 11/18/19 14:23 VBG pO2 62 mm/Hg (28-44) H 11/18/19 14:23 VBG HCO3 20 mmol/L (22-28) L 11/18/19 14:23 VBG Total CO2 18 mmol/L (22-29) L 11/18/19 14:23 VBG O2 Saturation 93 % (70-80) H 11/18/19 14:23 VBG Base Excess -5.3 mmol/L (-3-3) L 11/18/19 14:23 Sodium 143 mmol/L (136-145) 11/19/19 06:30 Potassium 3.7 mmol/L (3.5-5.1) 11/19/19 06:30 Chloride 110 mmol/L (98-107) H 11/19/19 06:30 Carbon Dioxide 20.7 mmol/L (21.0-32.0) L 11/19/19 06:30 Anion Gap 12.3 mmol/L (3-11) H 11/19/19 06:30 BUN 12 mg/dL (7-18) 11/19/19 06:30 Creatinine 0.92 mg/dL (0.55-1.02) 11/19/19 06:30 Estimated GFR/1.73 m2 >= 60.00 (mL/min/1.73m2) 11/19/19 06:30 Glucose 99 mg/dL (74-106) 11/19/19 06:30 Lactate 0.8 mmol/L (0.6-1.4) 11/19/19 05:35 Calcium 8.6 mg/dL (8.5-10.1) 11/19/19 06:30 Magnesium 2.0 mg/dL (1.8-2.4) 11/18/19 17:55 Total Bilirubin 0.3 mg/dL (0.2-1.0) 11/19/19 06:30 AST 12 U/L (15-37) L 11/19/19 06:30 ALT 27 U/L (14-59) 11/19/19 06:30 Alkaline Phosphatase 72 U/L (46-116) 11/19/19 06:30 Total Protein 6.6 g/dL (6.4-8.2) 11/19/19 06:30 Albumin 3.4 g/dL (3.4-5.0) 11/19/19 06:30 TSH 1.34 uIU/mL (0.36-3.74) 11/18/19 14:00 Beta HCG, Quant < 1 mIU/mL (1-3) L 11/18/19 14:00 Urine Color Straw (Yellow) 11/18/19 16:00 Urine Clarity Cloudy (Clear) 11/18/19 16:00 Urine pH 7.5 (5-8) 11/18/19 16:00 Ur Specific [place] 1.015 (1.005-1.025) 11/18/19 16:00 Urine Protein Negative mg/dL (Negative) 11/18/19 16:00 Urine Ketones Negative mg/dL (Negative) 11/18/19 16:00 Urine Blood Negative (Negative) 11/18/19 16:00 Urine Nitrite Negative (Negative) 11/18/19 16:00 Urine Bilirubin Negative (Negative) 11/18/19 16:00 Urine Urobilinogen 0.2 EU/dL (Up TO 0.2) 11/18/19 16:00 Ur Leukocyte Esterase Trace (Negative) H 11/18/19 16:00 Urine RBC 0-2 HPF (0-2) 11/18/19 16:00 Urine WBC 3-5 HPF (0-5) 11/18/19 16:00 Ur Epithelial Cells Many HPF (Negative) 11/18/19 16:00 Urine Crystals Negative HPF (Negative) 11/18/19 16:00 Urine Bacteria Many HPF (Negative) 11/18/19 16:00 Urine Mucus Negative (Negative) 11/18/19 16:00 Ur Culture Indicated? No/sq. contamination 11/18/19 16:00 Urine Glucose Negative mg/dL (Negative) 11/18/19 16:00 Salicylates < 2.8 mg/dL (2.8-20.0) 11/18/19 14:00 Urine Opiates Screen Negative (Negative) 11/18/19 16:00 Urine Methadone Screen Negative (Negative) 11/18/19 16:00 Acetaminophen < 2 ug/mL (10-30) 11/18/19 14:00 Ur Barbiturates Screen Negative (Negative) 11/18/19 16:00 Ur Tricyclics Screen Negative (Negative) 11/18/19 16:00 Ur Amphetamines Screen Negative (Negative) 11/18/19 16:00 U Benzodiazepines Scrn Negative (Negative) 11/18/19 16:00 Urine Cocaine Screen Negative (Negative) 11/18/19 16:00 Ur THC Screen Negative (Negative) 11/18/19 16:00 Ethyl Alcohol < 3.0 mg/dL (<3) 11/18/19 14:00
--- NOTE | 2019-11-19 10:06 | PDOC.CMIN ---
- If Service Date Differs Date of service: 11/19/19 Time of Service: 10:06 Care Management Initial Assess REASON FOR HOSPITALIZATION:: Overdose PAST MEDICAL HISTORY/PAST SURGICAL HISTORY:: Medical History (Updated 11/18/19 @ 20:36 by Yoel Peguero). Abnormal Pap smear of cervix (Chronic). 2012 LGSIL. 09/11/13 colpo directed bx. 11/06/13 LEEP: CIN2. 05/2015 Nl Pap/Neg HPV. Anxiety (Chronic). Bipolar 1 disorder (Acute). Contraception (Resolved). Mirena IUD. 2008. Replaced 05/2015. Depression (Chronic). Genital herpes simplex (Chronic). on supressive therapy in the past. Mass of right forearm (Acute). Vertigo (Resolved). Surgical History (Updated 11/18/19 @ 20:18 by Yoel Peguero). History of tonsillectomy (Chronic) PREVIOUS FUNCTIONAL STATUS/SOCIAL/FAMILY SUPPORTS:: Kareen lives in [place] with her mother, who she helps care for. Her mother is her main support, as she is currently not in contact with her siblings. She previously worked at [employer] in [place], but she is currently unemployed. She is currently trying to obtain disability, and has support from a traffic i manager in the community to assist her with the process. She is independent with her ADL's, but she does have limits due to her mental health. CURRENT FUNCTIONAL STATUS:: Kareen was sitting up in bed when CM met with her. She stated that she was feeling better today, and is not currently feeling suicidal. 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 She stated that she is hoping to have disability soon, and has a traffic i manager to assist her with the process. She stated that prior to being connected with Rachel Moss, psych arnp and Marcia Damon, therapist, she felt that she would always have to live with her mental instability. She now has medication to help manage her illness. She stated that she is anxious to go home, and that she feels safe. LITTLE contacted [facility] Crisis for her to be evaluated now that she is medically cleared. [facility] embedded worker, Abigail stated that she created a safety plan with Kareen last night, and did not need to see her again today. LITTLE consulted with the MD, who stated that she needs to be evaluated again today prior to discharge, and expressed concern regarding her presentation today. LITTLE contacted [facility] and requested a MH evaluation. Emeterio arrived and evaluated Kareen. He first stated that she did not present as suicidal, and felt that she could be safe at home with a safety plan. LITTLE contacted Kareen's mother, Sandrine, who stated that she feels like she can keep her safe and will hold her medication in a safe location. She also stated that she wished Kareen knew that when she does this (suicide attempt) it makes things more difficult. LITTLE contacted Rachel Moss, psych arnp, who stated that she did not feel that sending her home with a safety plan is a good idea, as she is at a high risk for being succesful at suicide. She stated that Kareen presents as 'detached' and that she may not present as suicidal when, in fact, she has been. Rachel confirmed that Kareen has had several suicide attempts, and has had more than ten psychiatric hospitalizations. Upon learning this background information, the provider, LITTLE and [facility] screener agreed that Kareen is not safe to return home at this time. She was given the option to go to the care bed until her appointment with her GARNISHMENT SPECIALIST on Sunday, which she agreed to. LITTLE supported [facility] with coordination of placement in Care bed. Currently, LITTLE is awaiting a determination regarding whether or not Kareen will go to the Care bed this evening or tomorrow morning. CM will continue to follow. ADVANCE DIRECTIVES:: None on file. Has patient been provided with information about the portal?: No Did the patient sign up for the portal?: No CODE STATUS:: Full Code INSURANCE COVERAGE / FINANCIAL ISSUES:: JAMEL CURRENT HOME/COMMUNITY SERVICES/EQUIPMENT:: Kareen sees Rachel Moss, green lumber grader, and a therapist, Marcia Damon in the community. PRIMARY CARE PHYSICIAN:: Kimo Mckenzie POTENTIAL DISCHARGE NEEDS:: MH Screening for safety plan vs placement for psychiatric stabilization, follow up with [facility], green lumber grader, and therapist. PATIENT/FAMILY EDUCATION NEEDS:: Review discharge instructions including medication management, safety plan, and discussion of self care needs including ask me three ANTICIPATED BARRIERS TO DISCHARGE:: Pt is being medically cleared and my require placement for psychiatric stabilization. TRANSPORTATION:: TBD by disposition PLAN:: Kareen is being monitored at ICU level of care. Once she is medically cleared, she will be evaluated by MH for discharge with safety plan vs placement for psychiatric stabilization. Transportation TBD by disposition. She will follow up with her PCP, green lumber grader, and therapist in the community, as recommended.
--- NOTE | 2019-11-19 12:04 | W.NUTCONSULT ---
Date of service: 11/19/19 Time of Service: 12:04 Nutritional Consult ASSESSMENT: 34 year old female admitted with drug overdose. Currently on regular diet with adequate intake. Not considered at nutritional risk. will follow and support as needed. MONITORING AND EVALUATION: weight, po intake, labs Time Spent in Nutritional Counseling and Treatment: 0 time spent face to face
--- NOTE | 2019-11-19 15:05 | W.INMHPGNOTE ---
Date of service: 11/19/19 Time of Service: 15:05 Mental Health Crisis Note Presenting Issue How did you arrive at the ED and why did you come: Patient presented to ED via ambulance on 11/18/19 after medication o/d (two handfuls - topamax) and is seen in the ICU today following medical clearance. This initial call was placed by patient's mother. Precipitating Factors Patient is a 34yo female with history of depression, anxiety, and bipolar d/o. She advises that on 11/18 she was got into an argument with her sister via phone and that she became overwhelmed / stressed which prompted her to take two handfuls with prescribed topamax. She advises that interpersonal conflict can be a significant anxiety trigger. She advised that she has blocked her sister as a phone contact following this event. She denies current SI/HI, intent or plan. No evidence of acute distress, delusions, hallucinations, or psychotic thought process. The patient's was unable or unwilling to identify the specific intention behind taking the medication and states that I don't want to . It was a heat of the moment thing. Per consultation with care management team and patient, there is an extensive history of prior in-patient hospitalizations and at least 2 documented suicide attempts in the past involving medication o/d. The patient reports that she has a history of becoming highly impulsive when stressed which is accompanied by elevated SI. Based on presentation and reported history, severity / level of risk is estimated to be moderate-high. There is ongoing concern over patient's ability to maintain safety in an unsupervised environment over the next several days. Per consult with patient's ANILINE PRESS WORKER, Rachel Moss, it is advised that patient is higher risk and that stabilization is recommended. The patient has an appointment setup with Rachel Moss for 11/24/19 where a plan will be established for safe control and administration of medications. Patient's mother will be involved with this plan. The patient has not agreed to in-patient hospitalization at this juncture but is amenable to a short-term stabilization stay at the [facility]. All information will be faxed / forwarded accordingly. Disposition BEHAVIOR: Patient's presentation is unchanged from 11/18. She remains regretful of her behavior involving recent medication o/d and is intermittently tearful when asked about intention behind recent behavior and history of prior self-harm / suicide attempts. She is cooperative and appropriate in all interactions. EYE CONTACT: Good MOOD: Mildly depressed AFFECT: Congruent to mood APPETITE: Patient reports that she has not been eating regularly. SLEEP(trouble falling/staying asleep: Sleep disturbance - patient advises that she takes medication to assist with sleeping.
--- NOTE | 2019-11-19 19:43 | W.INMHPGNOTE ---
Date of service: 11/19/19 Time of Service: 19:43 Mental Health Crisis Note Presenting Issue How did you arrive at the ED and why did you come: Lorraine is seen in the ICU today after an overdose of her Rx yesterday. Precipitating Factors M is denying SI and HI today. She admits that she was impulsive and immediately remorseful and told her mother what she had done. Mother then called 911. On a scale of 0-10 where 10 was very safe and 0 was not safe at all M stated very safe and gave a number of 10. The [place] Suicide Screen was given by Miriam Rosado, Director of AO for [facility]. She did not score in the high risk category and safety plans were made verbally and in writing. Patient does not agree to voluntary placement for psychiatric treatment and does not meet criteria for involuntary admission. An appointment is scheduled with her PCP and a therapist for Sunday. Our emergency staff will do check in calls with her and she has our number to call if she feels she has become unsafe or has the desire to hurt herself. Disposition BEHAVIOR: Lorraine was cooperative and engaged. She was tearful but still made great eye contact. EYE CONTACT: Eye contact was good. MOOD: Lorraine is remorseful about her actions. AFFECT: Lorraine's affect is tearful but is appropriate in response to different discussions. APPETITE: Lorraine stated that she is eating and did have dinner. SLEEP(trouble falling/staying asleep: Her sleep is unknown this evening. Plan M agreed to the following plan: 1. She will allow her mother to administer her medications as directed. 2. Lorraine's mother will be given a lock box to lock medications in. 3. Lorraine agrees to random phone calls and/or face to face visits for check in's and is alotted 15 mins to call back if a call is missed. If not she is aware that [facility] may call 911 for a welfare check. 4. Lorraine will follow up with her counselor Sunday at 10:30am and her PMHNP Sunday at 1p 5. Lorraine will also use her written safety plan that shows supports and strategies she can use to help her distract from her negative feelings. Signature Clinician's Name/Title: Kayla Oreilly MS, [facility] Emergency Services Clinician
--- NOTE | 2019-11-19 20:20 | W.PM.DS.N ---
Date of service: 11/19/19 Time of Service: 20:20 DS: Diagnosis Discharge Diagnosis (1) Intentional overdose of drug in tablet form: Status: Acute Asessment and Plan: Currently medically stable with no evidence for cardiac arrhythmias and she has had resolution of her lactic acidosis and hypokalemia. As for control of her bipolar disorder and depression I feel that her symptoms are not adequately controlled and she deserves further inpatient psychiatric care however mental health officials from [facility] disagrees with my assessment. Therefore it is up to an [facility] to adequately ensure the patient's safety and close mental health follow up. (2) Lactic acidosis: Status: Acute Asessment and Plan: resolved (3) Depression: Status: Chronic Asessment and Plan: Not currently under adequate control but will be reevaluated by her psychiatric nurse practitioner. (4) Hypokalemia: Status: Acute Asessment and Plan: resolved (5) Discharge planning issues: Status: Acute Asessment and Plan: Patient will be discharged home to the care of her mother who will supervise her medication administration. Close follow-up with her psychiatric nurse practitioner Rachel Moss has been arranged for November 24, 2019. [facility] will make daily calls to the patient along with random check ins. Patient is to follow the safety plan outlined by Kayla Oreilly. Discharge Plan Disposition Patient Disposition: HOME Condition: Improving Discharge Details Chief Complaint: OD/Poison Clinical Impression: Intentional overdose of drug in tablet form Reason For Visit: OVERDOSE Admit Date/Time: 11/18/19 17:38 Admit Provider: Yoel Peguero Attending Provider: Yoel Peguero Primary Care Provider: Kimo Mckenzie ED Provider: Eyal Franklin Hospital Course Hospital Course: Ms. Cornelius is a 34-year-old female with a past medical history of PTSD, bipolar disorder, prior suicidal attempt by drug overdose who presented to the emergency department on November 18, 2019 after an intentional overdose of Topamax 200 capsules of 25 mg each. See the emergency room physician's note as well as Dr. Yoel Peguero's note from last night for details. There is some conflicting details about how she came into the emergency room. Initially was reported that the patient had a verbal argument with her sister and because of the patient's impulsivity took the overdose out of frustration. Allegedly the patient became immediately remorseful and called 911. However it since been learned that the patient's mother found the patient taking the overdose and the patient's mother initiated the call 911. Since admission the patient has not acknowledged any suicidal ideations. Per my interview with the patient this morning she would not state what her intentions were in taking the overdose and she became very tearful and avoided eye contact with me. Furthermore the patient was untruthful with me about her prior history of drug overdose and in fact she had told me that she had never done this before. Because of the amount of medications taken and the fact that it took her mother to call 911 and the fact that she was untruthful about her past history of suicidal attempts and untruthful about her prior mental health hospitalizations I felt it imperative that [facility] mental health evaluators reevaluate the patient's condition before discharge. The patient was observed overnight in the intensive care unit. Her lactic acidosis and hypokalemia resolved. From a medical standpoint she was cleared for discharge for further psychiatric treatment. It was my opinion that she probably required further inpatient psychiatric care as I felt that she was not mentally stable or safe to return into the community unsupervised. Qualified mental health professional from [facility] reevaluated the patient this evening and feels that the patient is stable enough to return to her home under the care of her mother with close outpatient follow-up. I disagree with this opinion. Despite the patient denying any further suicidal thoughts despite Reportedly not scoring high on [place] suicide risk scale I feel that further inpatient psychiatric care is warranted. However the mental health officials feel that she is not a candidate for involuntary admission at this time and the patient is not willing for voluntary admission. As such I have no choice but to release the patient into the community. Patient will follow the safety plan as outlined by [facility]. It will be the responsibility of [facility] to be responsible for the patient's welfare. Home Meds and New Rx's Prescriptions: Continued norethindrone-e.estradiol-iron 1.5 mg-30 mcg (21)/75 mg (7) tablet 1 tab PO DAILY Qty: 84 RF: 4 epinephrine 0.3 MG/SYR auto-injector 0.3 mg IJ PRN PRN (Reason: Anaphylaxis) Qty: 1 RF: 0 albuterol sulfate [ProAir HFA] 200 PUFF HFA aerosol inhaler 2 puff Inhalation PRN PRNRF: 0 prazosin [Minipress] 1 mg Capsule 1 mg PO HS RF: 0 topiramate [Topamax] 25 mg Tablet 50 mg PO BID RF: 0 Discharge Instructions Referrals: Rachel Moss [[facility] REGISTERED NURSE] - 11/24/19 Kimo Mckenzie MANAGER OF ADMINISTRATION [Primary Care Provider] - (call the office in the a.m. for follow up appointment in the next week) Activity:: Activity as Tolerated Equipment/Supplies:: No Equipment Needed Diet:: Normal Diet Discharge Orders Discharge Orders: Discharge Order (Routine); Ordered 11/19/19 Ordered By: Emeterio Cazares DS: Summary Status at Discharge Functional status at discharge: independent ambulation Overall status at discharge: patient is not back to baseline Mental Status: other (remains impulsive and depressed) Speech and Movement: restless Mood: other (remains impulsive and depressed) Affect: labile affect Exam Narrative Exam Narrative: see my exam from this morning Psych Mental Status: other (remains impulsive and depressed) Speech and Movement: restless Mood: other (remains impulsive and depressed) Affect: labile affect DS: Data Vitals/I&O Vitals and I&O: Vital Signs Temperature 36.8 C 11/19/19 16:25 Temperature Source Temporal Artery Scan 11/19/19 16:25 Pulse 58 L 11/19/19 16:58 Pulse 68 11/19/19 16:58 Respiratory Rate 20 11/19/19 16:58 Respiratory Effort Non-Labored 11/19/19 16:25 Respiratory Depth Normal 11/19/19 16:25 Respiratory Pattern Normal 11/19/19 16:25 Blood Pressure 119/74 11/19/19 16:58 Blood Pressure Mean 81 11/19/19 16:58 Blood Pressure Position Supine 11/19/19 16:25 Pulse Oximetry 97 11/19/19 16:25 Oxygen Delivery Method Room Air 11/19/19 08:16 Oxygen Flow Rate 0 11/19/19 08:16 Pain Level 0 11/19/19 16:25 Intake & Output 11/18/19 11/19/19 11/19/19 23:59 11:59 23:59 Intake Total 2235 / 2235 300 / 300 Output Total 600 / 1350 750 / 1350 Balance 2235 / 2235 -600 / -1050 -450 / -1050 Weight 114.4 kg Intake: IV 2034 Oral 200 / 200 300 / 300 Output: Urine 600 / 1350 750 / 1350 Other: Urine Color Yellow Yellow Straw Urine Appearance Clear Clear Urine Odor Normal None Comment Pt has a merena IUD Pt has a merena IUD Voiding Methods Bedside Commode Data Completed and Pending Labs on day of discharge: Labs from last 24 hours 11/19/19 11/19/19 06:30 05:35 Sodium 143 Potassium 3.7 Chloride 110 H Carbon Dioxide 20.7 L Anion Gap 12.3 H BUN 12 Creatinine 0.92 Estimated GFR/1.73 m2 >= 60.00 Glucose 99 Lactate 0.8 Calcium 8.6 Total Bilirubin 0.3 AST 12 L ALT 27 Alkaline Phosphatase 72 Total Protein 6.6 Albumin 3.4 PFSH Medical History (Updated 11/19/19 @ 08:56 by Emeterio Cazares) Abnormal Pap smear of cervix (Chronic) 2012 LGSIL. 09/11/13 colpo directed bx. 11/06/13 LEEP: CIN2 05/2015 Nl Pap/Neg HPV Anxiety (Chronic) Bipolar 1 disorder (Acute) Contraception (Resolved) Mirena IUD. 2008. Replaced 05/2015 Depression (Chronic) Genital herpes simplex (Chronic) on supressive therapy in the past Mass of right forearm (Acute) Vertigo (Resolved) Surgical History (Updated 11/18/19 @ 20:18 by Yoel Peguero) History of tonsillectomy (Chronic) Social History Smoking/Tobacco Use Status: Never Alcohol Intake: never Drug use: Never Substance use type: does not use Current gender identity: female Do you feel safe at home: Yes Do you feel safe in your relationship?: Yes Additional Social history: Lives with her mom Sandrine and her 12-year-old son Heidi. They have 2 cats. She does not work outside the home. Female Reproductive History Menstrual control method: none History History 1 Para Hx # Term Pregnancies 1 Multiple births Hx # Pregnancies Ectopic pregnancies AB induced Hx Number of Living Children AB spontaneous
--- NOTE | 2019-11-19 20:49 | CMDISCH_ITS ---
- If Service Date Differs Date of service: 11/19/19 Time of Service: 20:49 LACE Index Scoring Tool - Questions: Length of Stay (in days): 2 Acuity (Admit via E.D.?): Yes E.D. Visits: 4 - Answers: Total Score: 9 Risk of Readmission: Low Risk Care Management Discharge Reason for Hospitalization: Overdose Discharge Plan: Kareen had been screened by [facility] earlier today, and she agreed to go to the Care Bed, managed by [facility], as the MD, LITTLE, [facility] screener, and her community grounds/maintenance specialist all agreed that she is at high risk and should have stabilization prior to returning home. CM followed up on the status of the Care bed admission. The crisis screener called and informed CM that his manufacturing supervisor 2nd shift would be arriving at [facility] with a QMHP shortly. After meeting with Kareen, Miriam, [facility] Sound Assistant, and Kayla, [facility] discussed their plan with CM. They stated that Kareen does not meet criteria for the Care Bed or for Involuntary admission. They stated that she is not scoring in the high risk category for lethality. They have made a safety plan with Kareen in the community with mul tiple levels of support. CM does not agree with the assesment, as patient had a severe suicide attempt yesterday. CM spoke with the MD, who also did not agree with the plan. Miriam provided Kareen with a lock box for medications. LITTLE called [facility] to provide a ride home for Kareen. LITTLE also faxed a referral for future use of RCT in the community. Patient/Family Education Needs: Review discharge instructions regarding medication management, safety plan, and follow up appointments with Kareen's community providers. [facility] will follow Kareen closely, and will check in on her twice a day.
--- NOTE | 2019-11-19 20:49 | PDOC.CMDIS ---
- If Service Date Differs Date of service: 11/19/19 Time of Service: 20:49 LACE Index Scoring Tool - Questions: Length of Stay (in days): 2 Acuity (Admit via E.D.?): Yes E.D. Visits: 4 - Answers: Total Score: 9 Risk of Readmission: Low Risk Care Management Discharge Reason for Hospitalization: Overdose Discharge Plan: Kareen had been screened by [facility] earlier today, and she agreed to go to the Care Bed, managed by [facility], as the MD, LITTLE, [facility] screener, and her community line haul truck driver all agreed that she is at high risk and should have stabilization prior to returning home. CM followed up on the status of the Care bed admission. The crisis screener called and informed CM that his mud analysis supervisor would be arriving at [facility] with a QMHP shortly. After meeting with Kareen, Miriam, [facility] Vaccine Customer Representative, and Kayla, [facility] discussed their plan with CM. They stated that Kareen does not meet criteria for the Care Bed or for Involuntary admission. They stated that she is not scoring in the high risk category for lethality. They have made a safety plan with Kareen in the community with multiple levels of support. CM does not agree with the assesment, as patient had a severe suicide attempt yesterday. LITTLE spoke with the MD, who also did not agree with the plan. Miriam provided Kareen with a lock box for medications. LITTLE called [facility] to provide a ride home for Kareen. LITTLE also faxed a referral for future use of RCT in the community. Patient/Family Education Needs: Review discharge instructions regarding medication management, safety plan, and follow up appointments with Kareen's community providers. [facility] will follow Kareen closely, and will check in on her twice a day.
== END 2019-11-19 21:20 | disposition home or self-care (01) | DRG 918 ==
LOC: ER 19:12 → ICU 19:26
PROVIDERS: Admitting Provider Family Medicine; Emergency Provider Student in an Organized Health Care Education/Training Program; PCP Nurse Practitioner Family; Visit Provider Internal Medicine
DX: T42.72XA Poisoning by unspecified antiepileptic and sedative-hypnotic drugs, intentional self-harm, initial encounter (principal); F33.2 Major depressive disorder, recurrent severe without psychotic features; E87.2 Acidosis; E87.6 Hypokalemia; R42 Dizziness and giddiness; F43.11 Post-traumatic stress disorder, acute; F81.9 Developmental disorder of scholastic skills, unspecified; Z91.5 Personal history of self-harm; Z63.79 Other stressful life events affecting family and household; Y92.009 Unspecified place in unspecified non-institutional (private) residence as the place of occurrence of the external cause; Z71.3 Dietary counseling and surveillance
CPT/HCPCS: 36415; 36416; 80053; 80307; 81025; 82805; 82962; 93005; 96361; 96374; 99219; 99233; 99239; 99285; 80320; 80329; 81003; 81015; 83605; 83735; 84443; 84702; 85025; 85610; 85730; 93010; J3480

== ENCOUNTER 2020-04-15 00:18 | Outpatient (CLI) | payer MEDICAID, SELFPAY ==
--- NOTE | 2020-04-15 08:30 | DI.US_ITS ---
EXAM: US PELVIS TRANSVAGINAL CLINICAL HISTORY: IUD surveillence, pain, ABNL UTERINE BLEEDING,N93.9,R10.2. TECHNIQUE: Transabdominal and transvaginal pelvic ultrasound was performed using standard protocol. COMPARISON: US US PELVIS TRANSVAGINAL from 08/22/2018 FINDINGS: KIDNEYS: Kidneys are symmetric in size. No evidence of renal calculi. No evidence of hydronephrosis. No renal mass or cyst identified. UTERUS: Position: Retroverted. Size: 8.8 long by 3.2 AP by 4.6 transverse cm Endometrium: 0.2 cm. Normal for patient's menstrual status. Myometrium: Unremarkable. Cervix: The intrauterine device is seen within the cervical canal. OVARIES: Right: 3.3 x 2.1 x 1.7 cm Cyst or mass: Small follicular cysts. Left: 2.7 x 2.0 x 2.1 cm Cyst or mass: Small follicular cysts. DOPPLER: Color: Symmetric and uniform flow to both ovaries. No hyperemia. CUL-DE-SAC: Free fluid: None. Other: None. IMPRESSION: 1. Normal sonographic appearance of the kidneys. 2. Normal-appearing uterus with endometrial stripe within normal limits. 3. Unremarkable bilateral ovaries. 4. IUD is not located within the uterine endometrial canal. The IUD is located within the cervical c anal. DATA REPOSITORY:
== END 2020-04-15 00:38 ==
PROVIDERS: PCP Nurse Practitioner Family; Visit Provider Nurse Practitioner Women's Health
DX: N93.9 Abnormal uterine and vaginal bleeding, unspecified (principal); R10.2 Pelvic and perineal pain; Z97.5 Presence of (intrauterine) contraceptive device
CPT/HCPCS: 76830; 76856

== ENCOUNTER 2020-04-26 12:24 | Outpatient (REF) | payer MEDICAID, SELFPAY ==
--- NOTE | 2020-04-26 11:30 | PAPFT_PTH ---
PATIENT: Kareen Cornelius LOC: [facility] U#:[id number] AGE/SX: 34/F ROOM: RE04/26/[address]: Reta Vazquez NP : [id number] BED: DIS: 04/26/2020 SPEC #: [id number] RECD: 04/26/20 16:23 STATUS: FAVIAN REAlex #: [id number] FLORA: 04/26/20 11:[address]: Reta Vazquez NP DEPT: [facility] Cytology RECD BY: Maria T Gibson ENTERED: 04/26/20 16:23 SP TYPE: PAPFT OTHR DR: Kimo Mckenzie Tissues: 1 - CX/ENDOCX FOR PAP SMEARS Procedures: PAP THIN PREP/UVM Screening HPV DNA PROBE Comments: [id number]
== END 2020-04-26 12:44 ==
LOC: LBN 12:24
PROVIDERS: PCP Nurse Practitioner Family; Visit Provider Nurse Practitioner Women's Health
DX: Z11.51 Encounter for screening for human papillomavirus (HPV) (principal)
CPT/HCPCS: 88142; 87624

== ENCOUNTER 2021-05-02 11:56 | Emergency (ER) | payer MEDICAID, SELFPAY ==
[2021-05-02 12:12] VITALS: BP 142/79; PULSE 67; RESP 17; TEMP 37; O2SAT 98
[2021-05-02] MEDS: Doxycycline Hyclate 100 MG CAP PO (12:57)
--- NOTE | 2021-05-02 23:44 | W.ED.GENAD ---
Discharge Plan Disposition Patient Disposition: HOME Condition: Stable Discharge Details Clinical Impression: Cellulitis Primary Care Provider: Kimo Mckenzie ED Provider: Shey Cummins Home Meds and New Rx's Prescriptions: New doxycycline hyclate 100 mg tablet 100 mg PO BID Qty: 13 RF: 0 Continued Mirena 20 mcg/24 hours (5 yrs) 52 mg intrauterine device 1 device IY ONCE RF: 0 prazosin [Minipress] 1 mg capsule 5 mg PO HS RF: 0 ziprasidone HCl 20 mg capsule 20 mg PO QHS Qty: 1 RF: 0 topiramate [Topamax] 25 mg tablet 100 mg PO .COMPLEX RF: 0 epinephrine 0.3 MG/SYR auto-injector 0.3 mg IJ PRN PRN (Reason: Anaphylaxis) Qty: 1 RF: 0 albuterol sulfate [ProAir HFA] 200 PUFF HFA aerosol inhaler 2 puff Inhalation PRN PRNRF: 0 Discharge Instructions Instructions: Cellulitis (ED) Additional Instructions: Please return immediately to the emergency department if you develop any new or worsening symptoms, if your condition does not improve as expected, or if you become otherwise concerned. It is extremely important that you call soon as possible to make an appointment to be seen in follow-up for this visit by your primary care doctor. Referrals: Kimo Mckenzie, [employer] [Primary Care Provider] - Discharge Data Discharge Date/Time-TO BE ENTERED AT DEPARTURE: 05/02/21 12:58 Medical Decision Making Kareen Cornelius is a 35 y/o woman who presented to the emergency department with recent tattoo performed at home by friend (with professional equipment), now with small area of redness surrounding tattoo. On exam Pt is very well and non-toxic appearing. Right medial lower leg just proximal to malleolus with 2cm tattoo with 1 cm surrounding erythema without other findings. Concern for mild cellulitis. Exam/hx at this time not c/w abscess, DVT, sepsis, SJS, TEN, other systemic process. Plan for outpt abx. I had a lengthy discussion with Patient regarding return to emergency department precautions, home care, and importance of outpatient follow-up. Pt verbalizes understanding of the plan and is amenable. Patient discharged to home with clear plan for outpatient follow-up. All questions were answered. Disposition decision was made weighing the risks and benefits of hospitalization versus outpatient treatment, the risk for further decompensation, and the patient's wishes. Medical Records Medical records reviewed: Yes I reviewed the patient's medical records. HPI General Mode of arrival: ambulatory. Date/Time Provider Initiated Documentation: 05/02/21 12:19. Limitations to Documentation: no limitations. Information obtained by: patient, RN notes reviewed and old records reviewed. HPI Narrative: Kareen Cornelius is a 35 y/o woman with h/o depression, asthma presenting to the emergency department with chief complaint skin infection. Pt reports that three days ago a friend brought tattoo equipment to her house and gave the Pt a tattoo on her right inner ankle. Pt reports that she has had gradually increasing redness and pain around the area of the tattoo. No other pain, no fever, vomiting, diarrhea, other rash, SOB, cough, numbness, weakness. Feels otherwise very well and in her usual state of health. Related Data Home Medications Medication Instructions Recorded Confirmed albuterol sulfate [ProAir HFA] 2 puff INHALATION PRN PRN 06/15/17 05/02/21 epinephrine 0.3 mg IJ PRN PRN #1 kit 02/10/18 05/02/21 levonorgestrel 20 mcg/24 hours (6 1 device IY ONCE 04/07/20 05/02/21 yrs) 52 mg intrauterine device prazosin 1 mg capsule 5 mg PO HS cap 03/01/21 05/02/21 topiramate 25 mg tablet 100 mg PO .COMPLEX tab 03/01/21 05/02/21 ziprasidone HCl 20 mg capsule 20 mg PO QHS #1 cap 03/01/21 05/02/21 doxycycline hyclate 100 mg PO BID #13 tab 05/02/21 Previous Rx's Medication Instructions Recorded epinephrine 0.3 mg IJ PRN PRN #1 kit 02/10/18 ziprasidone HCl 20 mg capsule 20 mg PO QHS #1 cap 03/01/21 doxycycline hyclate 100 mg PO BID #13 tab 05/02/21 Allergies Allergy/AdvReac Type Severity Reaction Status Date / Time No Known Allergies Allergy Verified 01/27/21 10:58 General Stated Complaint: Cellulitis KATIE: 5 Review of Systems Narrative: Constitutional: denies fevers Eyes: denies eye pain ENT: denies ear pain, dental pain, sore throat Cardiovascular: denies chest pain, edema Respiratory: denies SOB, cough GI: denies abdominal pain, vomiting, diarrhea : denies flank pain MSK: denies back pain, neck pain, arthralgias, myalgias Skin: reports rash as per HPI Neuro: denies headaches, numbness, weakness [facility] Medical History (Updated 05/02/21 @ 12:54 by Shey Cummins MD) Abnormal Pap smear of cervix 2012 [facility]. 09/11/13 colpo directed bx. 11/06/13 LEEP: CIN2 05/2015 Nl Pap/Neg HPV Anxiety Bipolar 1 disorder Contraception Mirena IUD. 2008. Replaced 05/2015 Depression Genital herpes simplex on supressive therapy in the past IUD (intrauterine device) in place 02/2020 Mirena IUD inserted treat abnormal uterine bleeding, malpositioned 04/26/20 New IUD inserted Mass of right forearm Vertigo Surgical History (Updated 11/18/19 @ 20:18 by Yoel Peguero) History of tonsillectomy Social History Smoking/Tobacco Use Status: Never Smoking risk assessment performed?: Yes Alcohol Intake: never Drug use: Never Substance use type: does not use Current gender identity: female Do you feel safe at home: Yes Do you feel safe in your relationship?: Yes Additional Social history: Lives with her mom Sandrine and her 12-year-old son Heidi. They have 2 cats. She does not work outside the home. Female Reproductive History Menstrual control method: none History History 1 Para Hx # Term Pregnancies 1 Multiple births Hx # Pregnancies Ectopic pregnancies AB induced Hx Number of Living Children AB spontaneous Exam Narrative Exam Narrative: Constitutional: well and [id number], pleasant, conversing normally HENT: head atraumatic/normocephalic/normal inspection, mucous membranes moist Eyes: conjunctiva normal, sclera normal, pupils 3mm b/l Neck: no stridor, normal ROM, trachea midline Resp: normal work of breathing, speaking in full sentences Cardio: normal rate, normal rhythm Skin: warm, dry, normal color, no rash Neuro: alert, not altered, grossly non-focal, normal tone Ext: right medial lower leg just proximal to mallelous with 2 cm tattoo with 1cm surrounding mild erythema, no mass, no fluctuance, no streaking, no edema, no posterior calf TTP, no other skin changes Psych: normal mood, normal affect, normal behavior Course Vital Signs Vital signs: Vital Signs Temperature 37.0 C 05/02/21 12:12 Pulse 67 05/02/21 12:12 Respiratory Rate 17 05/02/21 12:12 Blood Pressure 142/79 H 05/02/21 12:12 Pulse Oximetry 98 05/02/21 12:12 Temperature 37.0 C 05/02/21 12:12 Temperature Source Temporal Artery Scan 05/02/21 12:12 Pulse 67 05/02/21 12:12 Respiratory Rate 17 05/02/21 12:12 Respiratory Effort Non-Labored 05/02/21 12:16 Blood Pressure 142/79 H 05/02/21 12:12 Blood Pressure Position Sitting 05/02/21 12:12 Pulse Oximetry 98 05/02/21 12:12 Oxygen Delivery Method Room Air 05/02/21 12:12 Oxygen Flow Rate 0 05/02/21 12:12 Pain Level 1 05/02/21 12:12
== END 2021-05-02 12:58 | disposition home or self-care (01) ==
PROVIDERS: Emergency Provider Student in an Organized Health Care Education/Training Program; PCP Nurse Practitioner Family
DX: L03.115 Cellulitis of right lower limb (principal); L81.8 Other specified disorders of pigmentation
CPT/HCPCS: 99283

== ENCOUNTER 2021-06-26 16:19 | Emergency (ER) | payer MEDICAID, SELFPAY ==
[2021-06-26 16:30] VITALS: BP 140/88; PULSE 74; RESP 18; TEMP 36.6; O2SAT 98
--- NOTE | 2021-06-26 16:50 | ED.GENADUL_ITS ---
Discharge Plan Disposition Patient Disposition: HOME Condition: Stable Discharge Details Clinical Impression: Bilateral wrist pain Primary Care Provider: Kimo Mckenzie ED Provider: Adrian Vazquez Home Meds and New Rx's Prescriptions: Continued Mirena 20 mcg/24 hours (5 yrs) 52 mg intrauterine device 1 device IY ONCE RF: 0 epinephrine 0.3 MG/SYR auto-injector 0.3 mg IJ PRN PRN (Reason: Anaphylaxis) Qty: 1 RF: 0 ibuprofen [Ibuprofen IB] 200 mg Tablet 200 mg PO PRN PRNRF: 0 albuterol sulfate [ProAir HFA] 200 PUFF HFA aerosol inhaler 2 puff Inhalation PRN PRNRF: 0 Discharge Instructions Additional Instructions: You are likely suffering from 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 Today her right wrist has hurt more and so came here for an evaluation. Denies any trauma, falls. She has no fevers or chills. She localizes the pain in both wrists over the radial surface, no swelling, redness, erythema or palpable deformity or mass on exam. Has full range of motion with intact sensation and pulses. I suspect tendonitis from repetitive use of her hands at work, given lack of trauma do not feel xrays indicated. No findings to suggest septic joint. No palpable mass so unlikely ganglion cyst. Will place her right wrist since this is the more painful wrist in a splint to use as needed. Advised to f/u with pcp if pain continues and return precautions given Differential Diagnosis Differential Diagnosis: tendonitis, ganglion cyst HPI General Mode of arrival: ambulatory . Date/Time Provider Initiated Documentation: 06/26/21 16:40 . Limitations to Documentation: no limitations . Information obtained by: patient . History of Present Illness 35 year old F presents to the emergency department with the chief complaint of right wrist pain, described as moderate, Quality is described as aching, and it has been constant. No relieving factors improve symptom(s), No exacerbating factors reported . Patient notes no other symptoms.. Patient did receive the following treatments prior to arrival, none Related Data Home Medications Medication Instructions Recorded Confirmed albuterol sulfate [ProAir HFA] 2 puff INHALATION PRN PRN 06/15/17 06/26/21 epinephrine 0.3 mg IJ PRN PRN #1 kit 02/10/18 06/26/21 levonorgestrel 20 mcg/24 hours (6 1 device IY ONCE 04/07/20 06/26/21 yrs) 52 mg intrauterine device ibuprofen [Ibuprofen IB] 200 mg PO PRN PRN 06/26/21 06/26/21 Previous Rx's Medication Instructions Recorded epinephrine 0.3 mg IJ PRN PRN #1 kit 02/10/18 Allergies Allergy/AdvReac Type Severity Reaction Status Date / Time No Known Allergies Allergy Verified 06/26/21 16:37 General Stated Complaint: Orthopedic KATIE: 4 Review of Systems All systems reviewed & are unremarkable except as noted in HPI and below Constitutional Constitutional: Denies chills and Denies fever(s) ENT Ears, Nose, Mouth, and Throat: Denies change in voice Cardiovascular Cardiovascular: Denies chest pain and Denies dyspnea Respiratory Respiratory: Denies cough and Denies dyspnea Gastrointestinal Gastrointestinal: Denies abdominal pain, Denies nausea and Denies vomiting Musculoskeletal Musculoskeletal: Denies joint swelling [facility] Medical History (Updated 06/26/21 @ 16:55 by Adrian Vazquez MD) Abnormal Pap smear of cervix 2012 [facility]. 09/11/13 colpo directed bx. 11/06/13 LEEP: CIN2 05/2015 Nl Pap/Neg HPV Anxiety Bipolar 1 disorder Contraception Mirena IUD. 2008. Replaced 05/2015 Depression Genital herpes simplex on supressive therapy in the past IUD (intrauterine device) in place 02/2020 Mirena IUD inserted treat abnormal uterine bleeding, malpositioned 04/26/20 New IUD inserted Mass of right forearm Vertigo Surgical History (Updated 11/18/19 @ 20:18 by Yoel Peguero) History of tonsillectomy Social History Smoking/Tobacco Use Status: Never Smoking risk assessment performed?: Yes Alcohol Intake: never Drug use: Never Substance use type: does not use Current gender identity: female Do you feel safe at home: Yes Do you feel safe in your relationship?: Yes Additional Social history: Lives with her mom Sandrine and her 12-year-old son Heidi. They have 2 cats. She does not work outside the home. Female Reproductive History Menstrual control method: none History History 1 Para Hx # Term Pregnancies 1 Multiple births Hx # Pregnancies Ectopic pregnancies AB induced Hx Number of Living Children AB spontaneous Exam Const General: no acute distress Orientation: alert HENMT Head: normal to inspection Ears: external ears normal General nose exam: external nose normal Mouth: moist mucous membranes Eyes General: appearance normal, both eyes and all related structures Neck Neck: normal visual inspection Resp Effort & Inspection: normal respiratory effort and able to speak in complete sentences Cardio Rate: regular rate Skin General skin exam: no rashes or lesions noted Neuro General: patient alert and patient oriented x3 Extrem General: full ROM and capillary refill normal Psych Mental Status: mental status grossly normal Course Vital Signs Vital signs: Vital Signs Temperature 36.6 C 06/26/21 16:30 Pulse 74 06/26/21 16:30 Respiratory Rate 18 06/26/21 16:30 Blood Pressure 140/88 06/26/21 16:30 Pulse Oximetry 98 06/26/21 16:30 Temperature 36.6 C 06/26/21 16:30 Temperature Source Temporal Artery Scan 06/26/21 16:30 Pulse 74 06/26/21 16:30 Respiratory Rate 18 06/26/21 16:30 Blood Pressure 140/88 06/26/21 16:30 Blood Pressure Position Sitting 06/26/21 16:30 Pulse Oximetry 98 06/26/21 16:30 Oxygen Delivery Method Room Air 06/26/21 16:30 Oxygen Flow Rate 0 06/26/21 16:30 Pain Level 9 06/26/21 16:30
== END 2021-06-26 17:06 | disposition home or self-care (01) ==
PROVIDERS: Emergency Provider Emergency Medicine; PCP Nurse Practitioner Family
DX: M25.532 Pain in left wrist (principal); M25.531 Pain in right wrist
CPT/HCPCS: 99281; 99282

== ENCOUNTER 2021-07-01 12:23 | Emergency (ER) | payer MEDICAID, SELFPAY ==
[2021-07-01 12:29] VITALS: BP 144/86; PULSE 97; RESP 16; TEMP 36.7; O2SAT 98
--- NOTE | 2021-07-01 12:47 | ED.GENADUL_ITS ---
Discharge Plan Disposition Patient Disposition: HOME Condition: Improving Discharge Details Clinical Impression: Paresthesias Primary Care Provider: Earl Lenz ED Provider: Ruddy Rodríguez Home Meds and New Rx's Prescriptions: Continued Mirena 20 mcg/24 hours (5 yrs) 52 mg intrauterine device 1 device IY ONCE RF: 0 epinephrine 0.3 MG/SYR auto-injector 0.3 mg IJ PRN PRN (Reason: Anaphylaxis) Qty: 1 RF: 0 ibuprofen [Ibuprofen IB] 200 mg Tablet 200 mg PO PRN PRNRF: 0 albuterol sulfate [ProAir HFA] 200 PUFF HFA aerosol inhaler 2 puff Inhalation PRN PRNRF: 0 Discharge Instructions Additional Instructions: Our care management team will arrange a follow-up for you in clinic for recheck. Please begin ibuprofen at a dose of 600 mg twice daily for the next 5 days. Take this medication with food. Next dose is to be in 6 hours. Continue other regular medications. Return to the ER if you develop weakness, a rash, increasing changes to sensation or any other concerns. Medical Decision Making 35-year-old female with subjective numbness and tingling of the fingertips and two of her right toes over days time. 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 She was seen and felt to have early tendinitis for which she has been wearing a right wrist brace. Sensation is intact but subjectively diminished. He has no motor dysfunction and neurologic exam is otherwise reassuring. Consider electrolyte abnormality, repetitive motion injury, nonspecific dysesthesia. Do not find evidence of spinal involvement and would defer imaging. Phlebotomy contacted and patient referred for laboratory work-up. Laboratories no white blood cell count of 11, hematocrit 41, platelets 355. Chemistries including magnesium and calcium are within normal limits. Likely this is overuse and due to peripheral nerve compression. Discussed with her trial of NSAIDs. We will also ask career representative to arrange a follow-up for her in outpatient clinic. HPI General Mode of arrival: ambulatory . Date/Time Provider Initiated Documentation: 07/01/21 12:31 . Limitations to Documentation: no limitations . Information obtained by: patient . History of Present Illness 35 year old F presents to the emergency department with the chief complaint of Tingling in fingers and right toes, described as mild, and is localized to the left, right, upper extremity and lower extremity. Patient reports no radiation. Patient started experiencing this day(s) and it has been intermittent. No relieving factors improve symptom(s), No exacerbating factors reported . Patient notes denies fever/chills, nausea/vomiting, rash, shortness of breath and weakness. Patient did receive the following treatments prior to arrival, none Related Data Home Medications Medication Instructions Recorded Confirmed albuterol sulfate [ProAir HFA] 2 puff INHALATION PRN PRN 06/15/17 07/01/21 epinephrine 0.3 mg IJ PRN PRN #1 kit 02/10/18 07/01/21 levonorgestrel 20 mcg/24 hours (6 1 device IY ONCE 04/07/20 07/01/21 yrs) 52 mg intrauterine device ibuprofen [Ibuprofen IB] 200 mg PO PRN PRN 06/26/21 07/01/21 Previous Rx's Medication Instructions Recorded epinephrine 0.3 mg IJ PRN PRN #1 kit 02/10/18 Allergies Allergy/AdvReac Type Severity Reaction Status Date / Time No Known Allergies Allergy Verified 07/01/21 12:34 General Stated Complaint: GenMedical KATIE: 3 Review of Systems Narrative: No recent illness, no fever, no rash, no injury. started a new job over the last 2 weeks with repetitive motion. Six systems reviewed and otherwise negative [facility] Medical History Abnormal Pap smear of cervix 2012 [facility]. 09/11/13 colpo directed bx. 11/06/13 LEEP: CIN2 05/2015 Nl Pap/Neg HPV Anxiety Bipolar 1 disorder Contraception Mirena IUD. 2008. Replaced 05/2015 Depression Genital herpes simplex on supressive therapy in the past IUD (intrauterine device) in place 02/2020 Mirena IUD inserted treat abnormal uterine bleeding, malpositioned 04/26/20 New IUD inserted Mass of right forearm Vertigo Surgical History (Updated 11/18/19 @ 20:18 by Yoel Peguero) History of tonsillectomy Social History Smoking/Tobacco Use Status: Never Smoking risk assessment performed?: Yes Alcohol Intake: never Drug use: Never Substance use type: does not use Current gender identity: female Do you feel safe at home: Yes Do you feel safe in your relationship?: Yes Additional Social history: Lives with her mom Sandrine and her 12-year-old son Heidi. They have 2 cats. She does not work outside the home. Female Reproductive History Menstrual control method: none History History 1 Para Hx # Term Pregnancies 1 Multiple births Hx # Pregnancies Ectopic pregnancies AB induced Hx Number of Living Children AB spontaneous Exam Narrative Exam Narrative: GEN: awake, alert, oriented 3. Pleasant, well groomed, interactive. HEAD: Normocephalic, atraumatic ENT: Mucous membranes moist, oropharynx unremarkable, External ear exam unremarkable EYES: PERRL, EOMI NECK: Full ROM, no BRIANA, no menigismus CHEST/RESP: No respiratory distress EXT: Full ROM, no edema, no rash. Patient demonstrates normal motor function of radial/ulnar/median nerves. Sensation intact throughout, subjectively, symmetrically diminished in all five volar fingertips. Subjective decreased sensation right foot plantar surface of the second and third toes. Neuro: Grossly normal neurologic exam, conversant, interactive. Patellar reflex 1+ and symmetric bilaterally. Motor graded 5 out of 5 throughout the upper and lower extremity. Psych: Speech fluent, thoughts congruent, affect normal Course Vital Signs Vital signs: Vital Signs Temperature 36.7 C 07/01/21 12:29 Pulse 97 H 07/01/21 12:29 Respiratory Rate 16 07/01/21 12:29 Blood Pressure 144/86 H 07/01/21 12:29 Pulse Oximetry 98 07/01/21 12:29 Temperature 36.7 C 07/01/21 12:29 Temperature Source Skin 07/01/21 12:29 Pulse 97 H 07/01/21 12:29 Respiratory Rate 16 07/01/21 12:29 Respiratory Effort Non-Labored 07/01/21 12:34 Blood Pressure 144/86 H 07/01/21 12:29 Blood Pressure Position Sitting 07/01/21 12:29 Pulse Oximetry 98 07/01/21 12:29 Oxygen Delivery Method Room Air 07/01/21 12:29 Oxygen Flow Rate 0 07/01/21 12:29 Pain Level 2 07/01/21 12:29
[2021-07-01 13:10] LABS: Abs Immature Grans 0.04 10^3/uL (0.0-0.06); Absolute Basophil Count 0.06 10^3/uL (0.0-0.2); Absolute Eosinophil Count 0.14 10^3/uL (0.0-0.7); Absolute Lymphocyte Count 3.77 10^3/uL (1.2-3.4); Absolute Monocyte Count 0.82 10^3/uL (0.1-0.8); Absolute Neutrophil Count 6.28 10^3/uL (1.2-6.7); Basophils % 0.5; Eosinophils % 1.3; HCT 41.7 % (36.0-46.0); HGB 13.2 g/dL (11.2-15.7); Immature Grans % 0.4; Lymphocytes % 33.9; MCH 27.8 pg (27.0-33.0); MCHC 31.7 % (32.0-36.0); MPV 11.6 fL (8.0-11.0); Monocytes % 7.4; Neutrophils % 56.5; Nucleated RBC 0 %; Platelet Count 355 10^3/uL (130-400); RBC 4.74 10^6/uL (3.93-5.22); RDW 12.7 % (11.7-14.6); RDW-SD 41.3 fL; WBC 11.11 10^3/uL (4.4-10.8)
[2021-07-01 13:45] VITALS: RESP 16
[2021-07-01 14:17] LABS: ALT 36 U/L (14-59); AST 21 U/L (15-37); Albumin 4.1 g/dL (3.4-5.0); Alkaline Phosphatase 62 U/L (46-116); Anion Gap 6.8 mmol/L (3-11); BUN 13 mg/dL (7-18); Bilirubin, Total 0.5 mg/dL (0.2-1.0); CO2 26.2 mmol/L (21.0-32.0); CREATININE 0.8 mg/dL (0.55-1.02); Calcium 9.3 mg/dL (8.5-10.1); Chloride 105 mmol/L (98-107); Glucose 78 mg/dL (74-106); Magnesium 2.1 mg/dL (1.8-2.4); Potassium 3.6 mmol/L (3.5-5.1); Sodium 138 mmol/L (136-145); Total Protein 7.5 g/dL (6.4-8.2)
[2021-07-01] MEDS: Ketorolac 15 MG/ML VIAL IVP (14:33)
[2021-07-01 14:34] VITALS: BP 124/79; PULSE 60; RESP 16; TEMP 36.2; O2SAT 98
--- NOTE | 2021-07-01 17:22 | NUR.NOTE ---
referral to cm for follow up[
== END 2021-07-01 14:43 | disposition home or self-care (01) ==
PROVIDERS: Emergency Provider Emergency Medicine; PCP Physician Assistant
DX: R20.2 Paresthesia of skin (principal)
CPT/HCPCS: 36415; 80053; 96374; 99284; 83735; 85025; 99283; J1885

== ENCOUNTER 2021-09-06 01:21 | Outpatient (CLI) | payer MEDICAID, SELFPAY ==
--- NOTE | 2021-09-06 08:00 | DI.MRI_ITS ---
Exam(s) MR UPPER EXTREMITY RT WO EXAM: MR UPPER EXTREMITY RT WO CLINICAL HISTORY: EXTENSOR INTERSECTION SYNDROME RT WRIST,MASS RT FOREARM,M65.831,R22.31. TECHNIQUE: Multiplanar multisequence MRI was performed. COMPARISON: None. FINDINGS: BONES: There is no fracture or contusion pattern. JOINTS: The radiocarpal joint is unremarkable. The carpal joints are unremarkable. TENDONS: Flexors: Unremarkable. Extensors: Unremarkable. MUSCLES: Unremarkable. MEDIAN NERVE: Unremarkable on this noncontrast examination. ULNAR NERVE: Unremarkable on this noncontrast examination. SOFT TISSUES: Unremarkable. LIGAMENTS: Unremarkable. TRIANGULAR FIBROCARTILAGE: Unremarkable. OTHER: IMPRESSION: No evidence of a soft tissue mass. No evidence of a ligament or tendon injury. DATA REPOSITORY:
== END 2021-09-06 01:41 ==
PROVIDERS: PCP Physician Assistant; Visit Provider Student in an Organized Health Care Education/Training Program
DX: M65.831 Other synovitis and tenosynovitis, right forearm (principal); R22.31 Localized swelling, mass and lump, right upper limb
CPT/HCPCS: 73218

== ENCOUNTER 2021-09-20 15:48 | Outpatient (REF) | payer MEDICAID, SELFPAY | END 2021-09-20 15:49 | disposition home or self-care (01) | LOC: NCHCN 15:48 | PROVIDERS: PCP Physician Assistant; Visit Provider Physician Assistant | DX: R35.0 Frequency of micturition (principal) | CPT/HCPCS: 87086 ==

== ENCOUNTER 2023-01-09 18:21 | Outpatient (REF) | payer MEDICAID, SELFPAY | END 2023-01-09 18:22 | disposition home or self-care (01) | LOC: LBN 18:21 | PROVIDERS: PCP Physician Assistant; Visit Provider Nurse Practitioner Women's Health | DX: R30.0 Dysuria (principal) | CPT/HCPCS: 87086 ==

== ENCOUNTER 2023-01-12 12:35 | Outpatient (REF) | payer MEDICAID, SELFPAY | END 2023-01-12 12:36 | disposition home or self-care (01) | LOC: LBN 12:35 | PROVIDERS: PCP Physician Assistant; Visit Provider Advanced Practice Midwife | DX: R30.0 Dysuria (principal) | CPT/HCPCS: 87086 ==

== ENCOUNTER 2023-01-15 14:13 | Outpatient (CLI) | payer MEDICAID, SELFPAY ==
--- NOTE | 2023-01-15 13:45 | DI.US_ITS ---
Exam(s) US RENAL EXAM: US RENAL CLINICAL HISTORY: left flank pain. Hematuria, R10.9, R31.9. TECHNIQUE: Brooks scale, color and spectral Doppler were used. COMPARISON: CT CT ABDOMEN PELVIS W from 11/02/2018 US US PELVIS TRANSVAGINAL from 04/15/2020 FINDINGS: Renal size in cm: Right: 11.3. Left: 11.8. Echogenicity: Normal. Hydronephrosis: No. Cyst or mass: No. Nephrolithiasis: No. Other findings: None. Bladder:The bladder was not well distended limiting evaluation. No gross abnormalities identified. Ureteral jets: Right: Visualized and unremarkable. Left: The left ureteral jet was not visualized on this examination. Prevoid vol:34 cc Postvoid vol:0 cc Renal color flow: Symmetric and within normal limits. IMPRESSION: 1. No evidence of nephrolithiasis or hydronephrosis. 2. The left ureteral jet was not visualized on this examination. This can be seen with obstruction. DATA REPOSITORY:
== END 2023-01-15 14:33 ==
LOC: DI 14:14
PROVIDERS: PCP Physician Assistant; Visit Provider Advanced Practice Midwife
DX: R10.9 Unspecified abdominal pain (principal); R31.9 Hematuria, unspecified
CPT/HCPCS: 76770

== ENCOUNTER 2023-01-20 13:05 | Emergency (ER) | payer MEDICAID, SELFPAY ==
[2023-01-20 13:07] VITALS: BP 133/73; PULSE 87; RESP 16; TEMP 36.9; O2SAT 97
--- NOTE | 2023-01-20 13:28 | ED.GENADUL_ITS ---
Discharge Plan Discharge Details Chief Complaint: FlankPain Primary Care Provider: Earl Lenz ED Provider: Marlo Craft Home Meds and New Rx's Prescriptions: No Action Mirena 20 mcg/24 hours (5 yrs) 52 mg intrauterine device 1 device IY ONCE Rx Instructions: as a single dose aripiprazole 2 mg tablet 2 mg PO DAILY Vyvanse 40 mg capsule 40 mg PO DAILY trazodone 50 mg tablet 50 mg PO DAILY zolpidem 10 mg tablet 10 mg PO QHS PRN phenazopyridine 200 mg tablet 200 mg PO TID Qty: 10 0RF cranberry 400 mg capsule 400 mg PO BID Qty: 30 4RF Rx Instructions: administer with meals epinephrine 0.3 MG/SYR auto-injector 0.3 mg IJ PRN PRN (Reason: Anaphylaxis) Qty: 1 0RF ibuprofen [Ibuprofen IB] 200 mg Tablet 200 mg PO PRN PRN albuterol sulfate [ProAir HFA] 200 PUFF HFA aerosol inhaler 2 puff Inhalation PRN PRN Patient Comments: 11/02/18--er-needs new rx Medical Decision Making Patient presents with right flank pain. Initially she was having left flank pain. Has been treated as an outpatient for UTI. Today's urine does not show any signs of infection. CT scan of the abdomen pelvis without contrast did not reveal any abnormalities. No kidney stone. I have asked the patient to consider using some lidocaine patches over the tender area. She will follow-up with her PCP in the next week. HPI General Date/Time Provider Initiated Documentation: 01/20/23 13:12 . HPI Narrative: 37-year-old presented to the emergency room with right flank pain. The right flank pain started today. She states that she been dealing with left flank pain for the past week. She was seen in the clinic and prescribed some antibiotics 1 week ago for presumptive UTI. She then followed up and was told that she did not have a UTI. She was recommended that she get a CAT scan to rule out kidney stones because she did have some hematuria. Related Data Home Medications Medication Instructions Recorded Confirmed albuterol sulfate 90 mcg/actuation 2 puff inhalation PRN PRN 06/15/17 01/12/23 aerosol inhaler (ProAir HFA) epinephrine 0.3 mg/0.3 mL 0.3 mg (0.3 mL) IJ PRN PRN 02/10/18 01/12/23 injection, auto-injector Anaphylaxis ##1 levonorgestrel 21 mcg/24 hours (8 1 device intrauterine ONCE 04/07/20 01/12/23 yrs) 52 mg intrauterine device (Mirena) ibuprofen 200 mg tablet (Ibuprofen 200 mg PO PRN PRN 06/26/21 01/12/23 IB) aripiprazole 2 mg tablet 2 mg PO DAILY 11/24/21 01/12/23 lisdexamfetamine 40 mg capsule 40 mg PO DAILY 11/24/21 01/12/23 (Vyvanse) trazodone 50 mg tablet 50 mg PO DAILY 11/24/21 01/12/23 zolpidem 10 mg tablet 10 mg PO QHS PRN 11/24/21 01/12/23 cranberry 400 mg capsule 400 mg PO BID #30 caps 01/12/23 01/12/23 phenazopyridine 200 mg tablet 200 mg PO TID 6 doses #10 tabs 01/12/23 01/12/23 Previous Rx's Medication Instructions Recorded epinephrine 0.3 mg/0.3 mL 0.3 mg (0.3 mL) IJ PRN PRN 02/10/18 injection, auto-injector Anaphylaxis ##1 cranberry 400 mg capsule 400 mg PO BID #30 caps 01/12/23 phenazopyridine 200 mg tablet 200 mg PO TID 6 doses #10 tabs 01/12/23 Allergies Allergy/AdvReac Type Severity Reaction Status Date / Time No Known Allergies Allergy Verified 01/12/23 11:09 General Stated Complaint: FlankPain KATIE: 3 Review of Systems Narrative: 10 point review of system is negative unless otherwise stated in the HPI PFSH All Active Problems (Updated 01/15/23 @ 13:25 by Nia Tenorio CNM) Hematuria (Acute) Left flank pain (Acute) Dysuria (Acute) Abdominal wall mass of right upper quadrant (Acute) 11/24/2021. 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 09/11/13 colpo directed bx. 11/06/13 LEEP: CIN2 05/2015 Nl Pap/Neg HPV Anxiety Bipolar 1 disorder Contraception Mirena IUD. 2008. Replaced 05/2015 DVT prophylaxis Lactic acidosis Vertigo Surgical History (Updated 11/18/19 @ 20:18 by Yoel Peguero) History of tonsillectomy Family History (Updated 01/12/23 @ 11:27 by Nia Tenorio CNM) Brother Kidney stones Mother COPD (chronic obstructive pulmonary disease) Social History Smoking/Tobacco Use Status: Never Smoking risk assessment performed?: Yes Alcohol Intake: never Drug use: Never Substance use type: does not use Current gender identity: female Do you feel safe at home: Yes Do you feel safe in your relationship?: Yes Additional Social history: Lives with her mom Sandrine and her 12-year-old son Heidi. They have 2 cats. She does not work outside the home. Female Reproductive History Menstrual control method: progestin IUCD History History 1 Para Hx # Term Pregnancies 1 Multiple births Hx # Pregnancies Ectopic pregnancies AB induced Hx Number of Living Children AB spontaneous Exam Narrative Exam Narrative: General: A,A Ox3, Calm, no apparent distress, well developed, pleasant and cooperative Head Size/Shape: normocephalic, atraumatic Eyes Pupils: PERRLA Extraocular Mobility: intact and symmetrical Conjunctiva: non-injected, anicteric, no discharge Ears, Nose, Throat Nares: patent bilaterally Oral Cavity: moist Respiratory Respiratory Effort: no dyspnea Auscultation: clear to auscultation bilaterally, normal breath sounds, no wheezing, no rales/crackles Cardiovascular Heart Auscultation: regular rate and rhythm, normal S1, normal S2, no murmurs, no rubs, no gallops, Abdomen Inspection and Palpation: soft, non-tender, non-distended, no hepatosplenomegaly Positive right-sided CVAT Musculoskeletal System Joints, Bones, and Muscles: no deformities Extremities: warm and well-perfused, no cyanosis, capillary refill <2 seconds Skin Skin Inspection: no rash, no lesions, no bruising Neurological Motor: normal tone, normal strength, moving all extremities equally Psychiatric: good insight, good judgement, normal mood and affect Course Vital Signs Vital signs: Vital Signs Temperature 36.9 C 01/20/23 13:07 Pulse 87 01/20/23 13:07 Respiratory Rate 16 01/20/23 13:07 Blood Pressure 133/73 01/20/23 13:07 Pulse Oximetry 97 01/20/23 13:07 Temperature 36.9 C 01/20/23 13:07 Temperature Source Skin 01/20/23 13:07 Pulse 87 01/20/23 13:07 Respiratory Rate 16 01/20/23 13:07 Respiratory Effort Normal 01/20/23 13:18 Blood Pressure 133/73 01/20/23 13:07 Blood Pressure Position Sitting 01/20/23 13:07 Pulse Oximetry 97 01/20/23 13:07 Oxygen Delivery Method Room Air 01/20/23 13:07 Oxygen Flow Rate 0 01/20/23 13:07 Pain Level 10 01/20/23 13:18 Comment ibuprofen this morning 01/20/23 13:07 Lab/Test Results Lab/Test Results: POC- Test(urine) Negative
--- NOTE | 2023-01-20 13:30 | DI.CT_ITS ---
Exam(s) CT RENAL COLIC WO EXAM: CT RENAL COLIC WO CLINICAL HISTORY: flank pain. TECHNIQUE: Imaging Protocol: Axial computed tomography images with coronal and sagittal reformatted images were created and reviewed. COMPARISON: CT CT ABDOMEN PELVIS W from 11/02/2018 FINDINGS: ABDOMEN: Lung Bases: Normal where visualized. Liver: Normal density. No measurable mass. Gallbladder and biliary tract: No radiodense calculus or biliary ductal dilation. Pancreas: Normal density, no abnormal calcifications or inflammatory process. Spleen: Normal. Kidneys: Normal size, contour and axis.No radiodense stones or obstructive uropathy. No masses seen. Adrenal glands: No mass is seen. Lymph nodes: Within normal limits. Abdominal Aorta: Abdominal portion non-dilated. PELVIS: Bladder:Symmetric distention, no gross wall thickening. Bowel: There are diverticula seen in the colon, but no evidence of acute diverticulitis. There is no evidence of bowel wall thickening or bowel obstruction. Appendix is unremarkable. Peritoneal cavity: No ascites, collection or mesenteric inflammatory response. No free air. Reproductive organs: There is an IUD in place. Bones: Within normal limits. Soft Tissues: Within normal limits. IMPRESSION: No acute abdominal or pelvic process. No evidence of nephrolithiasis or hydronephrosis. RADIATION DOSE DELIVERED: 1,380.44mGy.cm Total DLP DATA REPOSITORY: All CT scans at this facility are submitted to the National Radiology Data Registry (NRDR) Dose Index Registry (DIR) with the [employer] (ACR). RADIATION OPTIMIZATION: All CT scans at this facility use at least one of these dose optimization te chniques: automated exposure control; mA and/or kV adjustment per patient size (includes targeted exa ms where dose is matched to clinical indication); or iterative reconstruction.
[2023-01-20 13:38] LABS: Bilirubin Negative (Negative); Blood Small (Negative); Clarity Sl Cloudy (Clear); Glucose Negative (Negative); Ketones Negative (Negative); Leukocyte Esterase Negative (Negative); Nitrite Negative (Negative); Specific Gravity >= 1.030 (1.005-1.025); Urobilinogen 0.2 mg/dL (Up to 0.2); pH 5.5 (5-8)
[2023-01-20 13:44] LABS: Epithelial Cells Many HPF (Negative); WBC 0-2 HPF (0-5)
[2023-01-20 13:45] LABS: Bacteria Moderate HPF (Negative); C & S Indicated? No/Sq. Contamination; Casts Negative LPF (Negative); Crystals Negative HPF (Negative); Mucus Negative (Negative)
--- NOTE | 2023-01-20 14:27 | DI.VRAD_ITS ---
PROCEDURE INFORMATION: Exam: CT Abdomen And Pelvis Without Contrast Exam date and time: 01/20/2023 1:55 PM Age: 37 years old Clinical indication: Other: Flank pain TECHNIQUE: Imaging protocol: Computed tomography of the abdomen and pelvis without contrast. COMPARISON: CT ABDOMEN PELVIS W 05/26/2019 16:58 FINDINGS: Lungs: Visualized lung bases are clear. Liver: Normal. No mass or intrahepatic biliary ductal dilatation. Gallbladder and bile ducts: There is some sludge within the gallbladder lumen. No calcified stones. No wall thickening. Pancreas: Normal. No mass or ductal dilation. Spleen: Normal. No splenomegaly. Adrenal glands: Normal. No mass. Kidneys and ureters: Normal. No hydronephrosis, calculus, cyst or mass. Stomach and bowel: Stomach and small bowel are normal. There is extensive diverticular disease throughout the colon especially in the descending and sigmoid segments. No acute inflammatory changes. Appendix: No evidence of appendicitis. Intraperitoneal space: Unremarkable. No free air. No significant fluid collection. Vasculature: Unremarkable. No abdominal aortic aneurysm or significant atherosclerosis. Lymph nodes: Few shotty retroperitoneal lymph nodes. No significant adenopathy. Urinary bladder: No mass or wall thickening. Reproductive: IUD within the uterus. Uterus is retroflexed. Bones/joints: Unremarkable. No acute fracture. No lytic lesion. Soft tissues: Unremarkable. IMPRESSION: No acute abnormality. No evidence of renal calculus or obstruction. There is pancolonic diverticulosis without signs of acute diverticulitis. Dictated and Authenticated by: Ruddy Mills MD. Ordering:ALICIA Sellers MD
[2023-01-20 14:42] VITALS: PULSE 78; RESP 18; O2SAT 98
== END 2023-01-20 14:44 | disposition home or self-care (01) ==
PROVIDERS: Emergency Provider Emergency Medicine; PCP Physician Assistant
DX: R10.9 Unspecified abdominal pain (principal)
CPT/HCPCS: 81025; 99284; 74176; 81003; 81015; 99283

== ENCOUNTER 2023-01-22 03:21 | Outpatient (CLI) | payer MEDICAID, SELFPAY ==
--- NOTE | 2023-01-22 06:15 | DI.CT_ITS ---
Exam(s) CT RENAL COLIC WO EXAM: CT RENAL COLIC WO CLINICAL HISTORY: follow up US, left flank pain,R10.9. TECHNIQUE: Imaging Protocol: Axial computed tomography images with coronal and sagittal reformatted images were created and reviewed. COMPARISON: CT CT RENAL COLIC WO from 01/20/2023 FINDINGS: ABDOMEN: Lung Bases: Normal where visualized. Liver: Normal density. No measurable mass. Gallbladder and biliary tract: No radiodense calculus or biliary ductal dilation. Pancreas: Normal density, no abnormal calcifications or inflammatory process. Spleen: Normal. Kidneys: Normal size, contour and axis.No radiodense stones or obstructive uropathy. No masses seen. Adrenal glands: No mass is seen. Lymph nodes: Within normal limits. Abdominal Aorta: Abdominal portion non-dilated. PELVIS: Bladder:Symmetric distention, no gross wall thickening. Bowel: There is diverticulosis in the colon, but no evidence of acute diverticulitis. Appendix is un remarkable. Peritoneal cavity: No ascites, collection or mesenteric inflammatory response. No free air. Reproductive organs: There is an IUD in position. Bones: Within normal limits. Soft Tissues: Within normal limits. IMPRESSION: 1. No evidence of nephrolithiasis or hydronephrosis. 2. Colonic diverticulosis, but no evidence of acute diverticulitis. RADIATION DOSE DELIVERED: 1,169.01mGy.cm Total DLP DATA REPOSITORY: All CT scans at this facility are submitted to the National Radiology Data Registry (NRDR) Dose Index Registry (DIR) with the [employer] (ACR). RADIATION OPTIMIZATION: All CT scans at this facility use at least one of these dose optimization te chniques: automated exposure control; mA and/or kV adjustment per patient size (includes targeted exa ms where dose is matched to clinical indication); or iterative reconstruction.
== END 2023-01-22 03:41 ==
LOC: DI 03:22
PROVIDERS: PCP Physician Assistant; Visit Provider Advanced Practice Midwife
DX: R10.9 Unspecified abdominal pain (principal); K57.90 Diverticulosis of intestine, part unspecified, without perforation or abscess without bleeding
CPT/HCPCS: 74176

== ENCOUNTER 2023-01-24 16:31 | Outpatient (REF) | payer MEDICAID, SELFPAY ==
[2023-01-24 20:32] LABS: HCT 41.9 % (36.0-46.0); HGB 13.7 g/dL (11.2-15.7); MCHC 32.7 % (32.0-36.0); MCV 89 fL (80-95); MPV 11.5 fL (8.0-11.0); Platelet Count 359 10^3/uL (130-400); RBC 4.73 10^6/uL (3.93-5.22); RDW 12.6 % (11.7-14.6); RDW-SD 41.1 fL
[2023-01-24 20:54] LABS: ALT 25 U/L (14-59); AST 11 U/L (15-37); Alkaline Phosphatase 76 U/L (46-116); Anion Gap 12.4 mmol/L (3-11); BUN 14 mg/dL (7-18); Bilirubin, Total 0.1 mg/dL (0.2-1.0); CO2 23.6 mmol/L (21.0-32.0); CREATININE 0.8 mg/dL (0.55-1.02); Calcium 8.9 mg/dL (8.5-10.1); Chloride 104 mmol/L (98-107); Estimated GFR 98.48 (mL/min/1.73m2); Glucose 100 mg/dL (74-106); Sodium 140 mmol/L (136-145); Total Protein 7.4 g/dL (6.4-8.2)
== END 2023-01-24 16:32 | disposition home or self-care (01) ==
LOC: NCHCN 16:31
PROVIDERS: PCP Physician Assistant; Visit Provider Physician Assistant
DX: R61 Generalized hyperhidrosis (principal)
CPT/HCPCS: 80053; 85027

== ENCOUNTER 2023-08-31 08:00 | Emergency (ER) | payer MEDICAID, SELFPAY ==
[2023-08-31 08:07] VITALS: BP 178/88; PULSE 103; RESP 18; TEMP 36.6; O2SAT 97
[2023-08-31 08:14] VITALS: BP 178/88; PULSE 103; RESP 18; TEMP 36.6; O2SAT 97
[2023-08-31 08:15] VITALS: RESP 18
--- NOTE | 2023-08-31 08:25 | ED.GENADUL_ITS ---
Discharge Plan Disposition Patient Disposition: Home Condition: Stable Discharge Details Clinical Impression: Tinea, Rash of both feet, Chronic cough, Elevated blood pressure reading Primary Care Provider: Earl Lenz ED Provider: Ford Cummins Home Meds and New Rx's Prescriptions: New clotrimazole 1 % ointment 1 applic topical BID 28 Days Qty: 56.7 1RF Continued Mirena 20 mcg/24 hours (5 yrs) 52 mg intrauterine device 1 device IY ONCE Rx Instructions: as a single dose aripiprazole 2 mg tablet 5 mg PO DAILY epinephrine 0.3 MG/SYR auto-injector 0.3 mg IJ PRN PRN (Reason: Anaphylaxis) Qty: 1 0RF ibuprofen [Ibuprofen IB] 200 mg Tablet 200 mg PO PRN PRN albuterol sulfate [ProAir HFA] 90 mcg/actuation HFA aerosol inhaler 2 inh inhalation Q4H PRN fluticasone propionate [24 Hour Allergy Relief] 50 mcg/actuation spray,suspension 1 spray intranasal DAILY PRN Rx Instructions: administer into each nostril sertraline 100 mg tablet 100 mg PO DAILY Patient Comments: TAKE ONE TABLET BY MOUTH EVERY DAY Discharge Instructions Instructions: Athlete's Foot (ED), Chronic Cough (ED) Additional Instructions: Please follow-up with your PCP. Call today to arrange follow-up. Apply cream to rash as prescribed. Other than application of cream, please try to keep your rash as dry as possible. Avoid using rubber boots. Please contact your primary care physician to arrange follow-up. Return to the ER immediately for any worsening or new concerning symptoms. Referrals: Earl Lenz [Primary Care Provider] - Discharge Data Discharge Date/Time-TO BE ENTERED AT DEPARTURE: 08/31/23 09:36 Medical Decision Making 37-year-old female here with 3 weeks of productive cough. Patient is saturating well and in no respiratory distress. She does have intermittent cough. Lungs clear to auscultation. Concern for pneumonia versus a chronic bronchitis versus other. Plan to obtain chest x-ray. Patient is hypertensive and mildly tachycardic on arrival and I suspect this is stress related. Patient also has separate complaint of rash on her anterior ankle/dorsal feet. History and appearance of rash consistent with fungal infection. Plan to treat with antifungal cream and have her follow-up with PCP for reassessment. 858 --chest x-ray reviewed and interpreted by radiology: No acute pulmonary findings. Plan for follow-up with PCP. Patient was informed of elevated blood pressure need to follow-up. Disposition decision was made weighing the risks and benefits of hospitalization versus outpatient treatment, the risk for further decompensation, and the patient's wishes. The patient was stable and requested discharge. Prior to discharge, my usual and customary return precautions were reviewed with the patient - this included follow-up instructions and reason to return to the emergency department if condition worsens, does not improve as expected, or other new concerns arise. HPI General Mode of arrival: ambulatory . Date/Time Provider Initiated Documentation: 08/31/23 08:06 . Limitations to Documentation: no limitations . Information obtained by: patient . HPI Narrative: 37-year-old female presents with chief complaint of cough. Patient notes cough productive of clear sputum over the past 3 months. She is been seen by her primary care physician and has tried multiple treatments including antihistamine without relief. She denies associated fever. No shortness of breath. No chest pain. Patient has no hemoptysis. Cough does seem worse at night. Patient also notes rash on her dorsal feet that started last week after working in rubber boots. Related Data Home Medications Medication Instructions Recorded Confirmed epinephrine 0.3 mg/0.3 mL 0.3 mg (0.3 mL) IJ PRN PRN 02/10/18 08/31/23 injection, auto-injector Anaphylaxis ##1 levonorgestrel 21 mcg/24 hours (8 1 device intrauterine ONCE 04/07/20 08/31/23 yrs) 52 mg intrauterine device (Mirena) ibuprofen 200 mg tablet (Ibuprofen 200 mg PO PRN PRN 06/26/21 08/31/23 IB) aripiprazole 2 mg tablet 5 mg PO DAILY 11/24/21 08/31/23 albuterol sulfate 90 mcg/actuation 2 inh inhalation Q4H PRN 08/31/23 08/31/23 aerosol inhaler (ProAir HFA) clotrimazole 1 % topical ointment 1 applic topical BID 4 weeks #56.7 08/31/23 grams fluticasone propionate 50 1 spray intranasal DAILY PRN 08/31/23 08/31/23 mcg/actuation nasal spray,suspension (24 Hour Allergy Relief) sertraline 100 mg tablet 100 mg PO DAILY 08/31/23 08/31/23 Previous Rx's Medication Instructions Recorded epinephrine 0.3 mg/0.3 mL 0.3 mg (0.3 mL) IJ PRN PRN 02/10/18 injection, auto-injector Anaphylaxis ##1 clotrimazole 1 % topical ointment 1 applic topical BID 4 weeks #56.7 08/31/23 grams Allergies Allergy/AdvReac Type Severity Reaction Status Date / Time citalopram [From Celexa] Allergy Intermediate Unverified 08/31/23 08:46 lamotrigine [From Lamictal] Allergy Mild Unverified 08/31/23 08:46 General Stated Complaint: GenMedical KATIE: 4 Review of Systems All systems reviewed & are unremarkable except as noted in HPI and below Constitutional Constitutional: Denies fever(s) Respiratory Respiratory: Reports as per HPI PFSH All Active Problems (Updated 08/31/23 @ 09:09 by Ford Cummins MD) Elevated blood pressure reading (Acute) Chronic cough (Acute) Rash of both feet (Acute) Tinea (Acute) Diverticulosis (Acute) Hematuria (Acute) Left flank pain (Acute) Dysuria (Acute) Abdominal wall mass of right upper quadrant (Acute) 11/24/2021. 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 2008. Replaced 05/2015 Abnormal Pap smear of cervix 2012 LGSIL. 09/11/13 colpo directed bx. 11/06/13 LEEP: CIN2 05/2015 Nl Pap/Neg HPV Surgical History History of tonsillectomy Family History Brother Kidney stones Mother COPD (chronic obstructive pulmonary disease) Social History Smoking/Tobacco Use Status: Never Smoking risk assessment performed?: Yes Alcohol Intake: never Drug use: Never Substance use type: does not use Housing: other Current gender identity: female Do you feel safe at home: Yes Do you feel safe in your relationship?: Yes Additional Social history: Lives with her mom Sandrine and her 12-year-old son Heidi. They have 2 cats. Works at a [employer]. HARSHA ELLISON 08/31/23 Female Reproductive History Menstrual control method: progestin IUCD History History 1 Para Hx # Term Pregnancies 1 Multiple births Hx # Pregnancies Ectopic pregnancies AB induced Hx Number of Living Children AB spontaneous Exam Const General: cooperative and no acute distress HENMT Mouth: moist mucous membranes Eyes Conjunctivae: normal conjunctivae Sclera: normal sclerae Neck Neck: trachea midline and supple Resp Effort & Inspection: normal respiratory effort and cough Auscultation: clear to auscultation bilaterally, no rales, no rhonchi and no wheezes Cardio Rate: regular rate and not tachycardic Rhythm: regular rhythm GI Palpation: soft, not firm, no guarding, no masses, not rigid and nontender Skin Rashes: rashes noted (Well-demarcated slightly raised scaly plaques bilateral anterior ankles) Neuro General: patient alert, patient awake and tone normal Extrem General: no edema Course Vital Signs Vital signs: Vital Signs Temperature 36.6 C 08/31/23 08:07 Pulse 103 H 08/31/23 08:07 Respiratory Rate 18 08/31/23 08:07 Blood Pressure 178/88 H 08/31/23 08:07 Pulse Oximetry 97 08/31/23 08:07 Temperature 36.6 C 08/31/23 08:14 Temperature Source Tympanic 08/31/23 08:07 Pulse 103 H 08/31/23 08:14 Respiratory Rate 18 08/31/23 08:15 Respiratory Effort Normal, Non-Labored 08/31/23 08:15 Respiratory Depth Normal 08/31/23 08:15 Respiratory Pattern Normal 08/31/23 08:15 Blood Pressure 178/88 H 08/31/23 08:14 Blood Pressure Position Sitting 08/31/23 08:14 Pulse Oximetry 97 08/31/23 08:14 Oxygen Delivery Method Room Air 08/31/23 08:14 Oxygen Flow Rate 0 08/31/23 08:07
--- NOTE | 2023-08-31 08:49 | DI.RAD_ITS ---
Exam(s) XR CHEST 2V PA LATERAL EXAM: XR CHEST 2V PA LATERAL CLINICAL HISTORY: cough. TECHNIQUE: 2D digital imaging was performed. COMPARISON: CR CHEST 2 VIEWS PA,LAT from 10/07/2017 FINDINGS: 2 views: Heart size is normal. The mediastinum is not widened. Lungs are clear. No infiltrates nor pleural effusions. IMPRESSION: No acute pulmonary findings. DATA REPOSITORY: RADIATION DOSE DELIVERED:
--- NOTE | 2023-08-31 08:49 | NUR.NOTE ---
Nursing Note: patient states she has an allergy to an antibiotic but unsure of the name. Records sent from [facility] does not show an allergy to an antibiotic. Emerg aware.
[2023-08-31 09:13] VITALS: BP 161/92; PULSE 82; RESP 16; O2SAT 98
--- NOTE | 2023-08-31 09:31 | NUR.NOTE ---
Nursing Note: PT needs PCP follow up next week for chronic cough & hypertension. Gissell, ED
== END 2023-08-31 09:36 | disposition home or self-care (01) ==
PROVIDERS: Emergency Provider Student in an Organized Health Care Education/Training Program; PCP Physician Assistant
DX: R21 Rash and other nonspecific skin eruption (principal); B35.9 Dermatophytosis, unspecified; R03.0 Elevated blood-pressure reading, without diagnosis of hypertension; R05.3 Chronic cough
CPT/HCPCS: 36416; 82962; 99283; 71046

== ENCOUNTER 2023-11-28 15:40 | Outpatient (REF) | payer MEDICAID, SELFPAY ==
[2023-11-28 21:01] LABS: Source Nasal/Nares
[2023-11-28 22:11] LABS: COVID-19 PCR Negative (Negative)
== END 2023-11-28 15:41 | disposition home or self-care (01) ==
LOC: LBN 15:40
PROVIDERS: PCP Physician Assistant; Visit Provider Physician Assistant Medical
DX: J06.9 Acute upper respiratory infection, unspecified (principal); R07.0 Pain in throat; Z11.52 Encounter for screening for COVID-19
CPT/HCPCS: 87635; 87070

== ENCOUNTER 2024-12-08 09:00 | Emergency (ER) | payer MEDICAID, SELFPAY ==
[2024-12-08 09:05] VITALS: BP 127/75; PULSE 105; RESP 16; TEMP 37.8; O2SAT 98
[2024-12-08 09:09] VITALS: PULSE 102; RESP 16; TEMP 37.8; O2SAT 98
--- NOTE | 2024-12-08 09:13 | ED.GENADUL_ITS ---
Discharge Plan Disposition Patient Disposition: Home Discharge Details Clinical Impression: Influenza A Primary Care Provider: Earl Lenz ED Provider: Yoel Gates Home Meds and New Rx's Prescriptions: New promethazine-DM 6.25-15 mg/5 mL syrup 5 ml PO Q6H PRNQty: 118 0RF cetirizine 10 mg tablet 10 mg PO DAILY PRNQty: 7 0RF naproxen 500 mg tablet 500 mg PO BID PRNQty: 7 0RF Continued Mirena 20 mcg/24 hours (5 yrs) 52 mg intrauterine device 1 device IY ONCE Rx Instructions: as a single dose epinephrine 0.3 MG/SYR auto-injector 0.3 mg IJ PRN PRN (Reason: Anaphylaxis) Qty: 1 0RF ibuprofen [Ibuprofen IB] 200 mg Tablet 200 mg PO PRN PRN albuterol sulfate [ProAir HFA] 90 mcg/actuation HFA aerosol inhaler 2 inh inhalation Q4H PRN fluticasone propionate [24 Hour Allergy Relief] 50 mcg/actuation spray,suspension 1 spray intranasal DAILY PRN Rx Instructions: administer into each nostril lisdexamfetamine [Vyvanse] 50 mg capsule 50 mg PO QAM Patient Comments: TAKE ONE CAPSULE BY MOUTH EVERY DAY Discharge Instructions Additional Instructions: You are seen in the emergency department for your cough. Please take these medications as directed. As we discussed, if you do not urinate at least once every 8 hours while awake or if you develop nausea or vomiting that does not stop please return to the emergency department. Otherwise please follow-up with your primary care provider later this week as needed for reassessment. Stand Alone Forms: Work Release Discharge Data Discharge Date/Time-TO BE ENTERED AT DEPARTURE: 12/08/24 10:38 HPI General Date/Time Provider Initiated Documentation: 12/08/24 09:13 . HPI Narrative: MDM This is an overall well-appearing mildly tachycardic but afebrile 39-year-old female with URI symptoms and pharyngitis most consistent with viral etiology for which patient will receive swab for COVID influenza. Patient has not been vomiting and so I am not suspicious that her headache is secondary to subdural empyema. She has no nuchal rigidity to suggest meningitis. She is not altered to suggest encephalitis. Her uvula is midline so I am not suspicious for peritonsillar abscess. Based on age and cough patient has a low Centor score so I did not swab for strep. Based on the patient's age my suspicion for mononucleosis is low so I do not feel the patient required blood work. Good range of motion in neck so doubt retropharyngeal abscess. Handling secretions so doubt epiglottitis. Nontoxic making my suspicion low for bacterial tracheitis. No recent chiropractic manipulation to suggest increased risk for cervical arterial dissection. No generator exposure to suggest increased risk for carbon monoxide toxicity. Will treat with acetaminophen and ibuprofen and increase sensitivity with PCR testing if POC swab is negative. Patient is no wheezes to suggest exacerbation of reactive airway disease so we will defer nebulization treatment at this point in time. 10:30 AM Patient was found to be influenza A positive. Her tachycardia resolved. Given her age and lack of risk factors I felt that the risks of oseltamavir outweighed the benefits. She understood her return indications and was discharged with empiric trial of expectant outpatient management. HPI This is a 39-year-old female with history of reactive airway disease arrived to the emergency department via private vehicle in the setting of cough and URI symptoms. Patient notes that she has sore throat and a headache that began yesterday. 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 She denies any sick contacts. She denies shortness of breath nausea vomiting chest pain and abdominal pain. She does have a history of reactive airway disease but has not needed to use her inhaler. She denies routine tobacco. She took ibuprofen yesterday but has not had any analgesia today. She has not yet had breakfast. She denies any recent trauma to her head. She endorses a generalized headache. Exam General: Well-appearing in no acute distress speaking in complete sentences. Head: Normocephalic, atraumatic. Eye: Extraocular eye movements intact. No conjunctival injection. No scleral icterus. Ear, nose, mouth, throat: Mild posterior oropharynx erythema. Normal voice, handling secretions normally. Uvula midline. Neck: Trachea midline. Good range of motion in neck. Cardiovascular: Well-perfused distal extremities. Rapid regular rate. Respiratory: Nonlabored respiration. Clear lungs bilaterally. Gastrointestinal: Nondistended abdomen. Musculoskeletal: No edema. Moving all 4 extremities spontaneously. Skin: Normal for age and race, grossly normal temperature and turgor. No acute rash. Neurologic: Alert and appropriate, no apparent acute deficits. GCS 15. Psychiatric: Mood and manner are appropriate. Grooming and personal hygiene are appropriate. Related Data Home Medications ?Medication ?Instructions ?Recorded ?Confirmed epinephrine 0.3 mg/0.3 mL 0.3 mg (0.3 mL) IJ PRN PRN 02/10/18 12/08/24 injection, auto-injector Anaphylaxis ##1 levonorgestrel 21 mcg/24 hr (up to 1 device intrauterine ONCE 04/07/20 12/08/24 8 years) 52 mg intrauterine device (Mirena) ibuprofen 200 mg tablet (Ibuprofen 200 mg PO PRN PRN 06/26/21 12/08/24 IB) albuterol sulfate 90 mcg/actuation 2 inh inhalation Q4H PRN 08/31/23 12/08/24 aerosol inhaler (ProAir HFA) fluticasone propionate 50 1 spray intranasal DAILY PRN 08/31/23 12/08/24 mcg/actuation nasal spray,suspension (24 Hour Allergy Relief) cetirizine 10 mg tablet 10 mg PO DAILY PRN #7 tabs 12/08/24 lisdexamfetamine 50 mg capsule 50 mg PO QAM 12/08/24 12/08/24 (Vyvanse) naproxen 500 mg tablet 500 mg PO BID PRN #7 tabs 12/08/24 promethazine-DM 6.25 mg-15 mg/5 mL 5 ml PO Q6H PRN #118 mL 12/08/24 oral syrup Previous Rx's ?Medication ?Instructions ?Recorded epinephrine 0.3 mg/0.3 mL 0.3 mg (0.3 mL) IJ PRN PRN 02/10/18 injection, auto-injector Anaphylaxis ##1 cetirizine 10 mg tablet 10 mg PO DAILY PRN #7 tabs 12/08/24 naproxen 500 mg tablet 500 mg PO BID PRN #7 tabs 12/08/24 promethazine-DM 6.25 mg-15 mg/5 mL 5 ml PO Q6H PRN #118 mL 12/08/24 oral syrup Allergies Allergy/AdvReac Type Severity Reaction Status Date / Time citalopram (From Celexa) Allergy Intermediate Contraindic Unverified 12/08/24 0 9:03 ated lamotrigine (From Lamictal) Allergy Mild Contraindic Unverified 12/08/24 09:03 ated General Stated Complaint: RespSymp KATIE: 4 Course Vital Signs Vital signs: Vital Signs Temperature 37.8 C H 12/08/24 09:05 Pulse 105 H 12/08/24 09:05 Respiratory Rate 16 12/08/24 09:05 Blood Pressure 127/75 12/08/24 09:05 Pulse Oximetry 98 12/08/24 09:05 Temperature 37.8 C H 12/08/24 09:09 Temperature Source Oral 12/08/24 09:09 Pulse 102 H 12/08/24 09:09 Respiratory Rate 16 12/08/24 09:09 Respiratory Effort Normal, Non-Labored 12/08/24 09:10 Respiratory Depth Normal 12/08/24 09:10 Blood Pressure 127/75 12/08/24 09:05 Blood Pressure Position Sitting 12/08/24 09:05 Pulse Oximetry 98 12/08/24 09:09 Oxygen Delivery Method Room Air 12/08/24 09:09 Oxygen Flow Rate 0 12/08/24 09:05 Pain Level 8 12/08/24 09:09 Medical Decision Making Quality:SDOH Health Related Social Needs: No Data to Display PFSH All Active Problems (Updated 12/08/24 @ 09:43 by Yoel Gates MD) Influenza A (Acute) Diverticulosis (Acute) Hematuria (Acute) Left flank pain (Acute) Dysuria (Acute) Abdominal wall mass of right upper quadrant (Acute) 11/24/2021. 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 2008. Replaced 05/2015 Abnormal Pap smear of cervix 2013 LGSIL. 09/11/13 colpo directed bx. 11/06/13 LEEP: CIN2 05/2015 Nl Pap/Neg HPV Surgical History History of tonsillectomy Family History Brother Kidney stones Mother COPD (chronic obstructive pulmonary disease) Social History Smoking/Tobacco Use Status: Never Smoking risk assessment performed?: Yes Alcohol Intake: never Drug use: Never Substance use type: does not use Housing: apartment Current gender identity: female Do you feel safe at home: Yes Do you feel safe in your relationship?: Yes Additional Social history: Lives with her mom Sandrine and her 12-year-old son Heidi. They have 2 cats. 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 HARSHA ELLISON 08/31/23 Female Reproductive History Menstrual control method: progestin IUCD History History 1 Para Hx # Term Pregnancies 1 Multiple births Hx # Pregnancies Ectopic pregnancies AB induced Hx Number of Living Children AB spontaneous
[2024-12-08] MEDS: Acetaminophen 500 MG TAB 1000 MG PO (09:32)
[2024-12-08] MEDS: Ibuprofen 600 MG TAB PO (09:33)
[2024-12-08 10:06] VITALS: PULSE 100
[2024-12-08 10:37] VITALS: PULSE 99; RESP 18; O2SAT 100
== END 2024-12-08 10:38 | disposition home or self-care (01) ==
LOC: ER 09:44
PROVIDERS: Emergency Provider Emergency Medicine; PCP Physician Assistant
DX: J10.1 Influenza due to other identified influenza virus with other respiratory manifestations (principal); R50.9 Fever, unspecified
CPT/HCPCS: 99283